=== PATIENT | male | born 1940 | race Caucasian/White ===

== ENCOUNTER 2017-11-16 08:33 | Observation (INO) | payer MEDICARE ==
[2017-11-16 09:06] LABS: ABS Basophils 0.1 10^3/ul (0-0.2); ABS Eosinophils 0.3 10^3/ul (0-0.6); ABS Lymphocytes 1.1 10^3/ul (1.0-4.8); ABS Monocytes 0.5 10^3/ul (0-0.8); ABS Neutrophils 5.1 10^3/ul (1.5-7.7); ABS Nucleated RBC 0 10^3/ul; Eosinophil % 3.7 % (0-6); Hematocrit 39 % (42-52); Hemoglobin 13.3 g/dl (14.0-18.0); Lymphocyte % 15.2 % (25-47); Mean Corpuscular HGB Conc 34 g/dl (31-36); Mean Corpuscular Hemoglobin 31 pg (27-31); Mean Corpuscular Volume 91 fL (80-94); Mean Platelet Volume 7.8 um3 (7.4-10.4); Nucleated Red Blood Cells % 0.1; Platelet Count 176 10^3/ul (150-450); Red Blood Count 4.25 10^6/ul (4.00-5.40); Red Cell Distribution Width 14 % (10.5-15)
--- NOTE | 2017-11-16 09:19 | ED ---
HPI Chest Pain - HPI Summary HPI Summary: This is Marian mendez, documenting for attending, Luke Bowers MD. This patient is a 77 year old M presenting to [facility] with a chief complaint of multiple intermittent episodes of stabbing, non-radiating chest pain located below the sternum lasting a few minutes at a time since last night around 17: 00. Pain is currently resolved, and is 4/10 at its worse. Denies fever, chills, cough abdominal pain, SOB, and bowel or urinary symptoms. PMHx of [place] in 2009, CAD with two stents placed in 2009 and 2010, HTN, and hyperlipidemia. Current symptoms are not similar to previous [place]. Medications and Allergies reviewed. Patient additionally reports a history of inflammatory disease of connective tissue. Denies history of diabetes. - History of Current Complaint Chief Complaint: EDChestPainROMI Time Seen by Provider: 11/16/17 08:41 Hx Obtained From: Patient Onset/Duration: Started Hours Ago, Resolved Timing: Intermittent, Lasting Minutes Initial Severity: Moderate Current Severity: None Pain Intensity: 4 - at worst Pain Scale Used: 0-10 Numeric Chest Pain Location: Discrete at: - below sternum Chest Pain Radiates: No Character: Sharp/Stabbing Aggravating Factor(s): Nothing Alleviating Factor(s): Spontaneous Resolution Associated Signs and Symptoms: Positive: Chest Pain. Negative: Shortness of Breath, Fever, Chills, Cough - Allergy/Home Medications Allergies/Adverse Reactions: Allergies Allergy/AdvReac Type Severity Reaction Status Date / Time atorvastatin Allergy Unknown Verified 11/16/17 09:16 Reaction Details ezetimibe Allergy Unknown Verified 11/16/17 09:16 Reaction Details Penicillins Allergy Unknown Verified 11/16/17 09:16 Reaction Details simvastatin Allergy Unknown Verified 11/16/17 09:16 Reaction Details Home Medications: Home Medications Acetaminophen/Diphenhydramine [Tylenol Pm Ex-Strength Caplet] 1 each PO BEDTIME 11/16/17 [History Confirmed 11/16/17] Carvedilol TAB* [Coreg TAB*] 3.125 mg PO BID 11/16/17 [History Confirmed ] Eplerenone [Inspra] 50 mg PO QAM 11/16/17 [History Confirmed 11/16/17] Rosuvastatin Calcium [Crestor] 5 mg PO QPM 11/16/17 [History Confirmed 11/16/17] Valsartan TAB* [Diovan TAB*] 80 mg PO BID 11/16/17 [History Confirmed 11/16/17] PMH/Surg Hx/FS Hx/Imm Hx Endocrine/Hematology History: Denies: Hx Diabetes Cardiovascular History: Reports: Hx Coronary Artery Disease - stent x2 LAD, Hx Hypercholesterolemia, Hx Hypertension, Hx Myocardial Infarction - Surgical History Surgery Procedure, Year, and Place: two stents place, 2009 and 2010 Infectious Disease History: No Infectious Disease History: Denies: Traveled Outside the [place] in Last 30 Days - Family History Known Family History: Positive: Hypertension - Social History Alcohol Use: None Substance Use Type: Reports: None Smoking Status (MU): Former Smoker Review of Systems Negative: Fever, Chills Negative: Erythema Negative: Sore Throat Positive: Chest Pain Negative: Shortness Of Breath, Cough Negative: Abdominal Pain, Vomiting, Nausea Negative: dysuria, flank pain Negative: Myalgia, Edema Neurological: Negative - dizziness Negative: Headache All Other Systems Reviewed And Are Negative: Yes Physical Exam - Summary Physical Exam Summary: Constitutional: Well-developed, Well-nourished, Alert. (-) Distressed Skin: Warm, Dry HENT: Normocephalic; Atraumatic Eyes: Conjunctiva normal Neck: Musculoskeletal ROM normal neck. (-) JVD, (-) Stridor, (-) Tracheal deviation Cardio: Rhythm regular, rate normal, Heart sounds normal; Intact distal pulses; The pedal pulses are 2+ and symmetric. Radial pulses are 2+ and symmetric. (-) Murmur Pulmonary/Chest wall: Effort normal. (-) Respiratory distress, (-) Wheezes, (-) Rales. Tenderness to midline and slightly to the right, below sternum and ribs Abd: Soft, (-), epigastric tenderness, (-) Distension, (-) Guarding, (-) Rebound Musculoskeletal: (-) Edema Lymph: (-) Cervical adenopathy Neuro: Alert, Oriented x3 Psych: Mood and affect Normal Triage Information Reviewed: Yes Vital Signs On Initial Exam: Initial Vitals Temp Pulse Resp BP Pulse Ox 98.4 F 65 16 159/76 99 11/16/17 08:34 11/16/17 08:34 11/16/17 08:34 11/16/17 08:34 11/16/17 08:34 Vital Signs Reviewed: Yes Diagnostics - Vital Signs Vital Signs Temp Pulse Resp BP Pulse Ox 11/16/17 08:34 98.4 F 65 16 159/76 99 - Laboratory Lab Results: Lab Results 11/16/17 Range/Units 08:50 WBC 7.0 (3.5-10.8) 10^3/ul RBC 4.25 (4.00-5.40) 10^6/ul Hgb 13.3 L (14.0-18.0) g/dl Hct 39 L (42-52) % MCV 91 (80-94) fL MCH 31 (27-31) pg MCHC 34 (31-36) g/dl RDW 14 (10.5-15) % Plt Count 176 (150-450) 10^3/ul MPV 7.8 (7.4-10.4) um3 Neut % (Auto) 72.8 (38-83) % Lymph % (Auto) 15.2 L (25-47) % Glenn % (Auto) 7.3 H (0-7) % Eos % (Auto) 3.7 (0-6) % Baso % (Auto) 1.0 (0-2) % Absolute Neuts (auto) 5.1 (1.5-7.7) 10^3/ul Absolute Lymphs (auto) 1.1 (1.0-4.8) 10^3/ul Absolute Monos (auto) 0.5 (0-0.8) 10^3/ul Absolute Eos (auto) 0.3 (0-0.6) 10^3/ul Absolute Basos (auto) 0.1 (0-0.2) 10^3/ul Absolute Nucleated RBC 0 10^3/ul Nucleated RBC % 0.1 Result Diagrams: 11/16/17 08:50 11/16/17 08:50 Lab Statement: Any lab studies that have been ordered have been reviewed, and results considered in the medical decision making process. - Radiology CXR Radiology Interpretation Completed By: Radiologist - NO ACTIVE CARDIOPULMONARY DISEASE. ED Physician has reviewed this report. - EKG 0851 Cardiac Rate: NL - 64 BPM EKG Rhythm: Sinus Rhythm EKG Interpretation: RBBB, no STEMI - Additional Comments Diagnostic Additional Comments: A Gallbladder US, reveals: FATTY INFILTRATION OF THE LIVER, as per radiologist. Chest Pain Course/Dx - Course Course Of Treatment: 77 year old M presenting to [facility] with a chief complaint of multiple intermittent episodes of stabbing, non-radiating chest pain located below the sternum lasting a few minutes at a time since last night around 17: 00. Pain is currently resolved. Denies fever, chills, cough abdominal pain, SOB , and bowel or urinary symptoms. PMHx of [place] in 2009, CAD with two stents placed in 2009 and 2010, HTN, and hyperlipidemia. Current symptoms are not similar to previous [place]. CXR reveals no acute pathology. EKG reveals RBBB but is otherwise unremarkable. A Gallbladder US reveals fatty liver infiltrates, but is otherwise unremarkable. Bloodwork is remarkable for a lactic acid of 2.1. Three Troponins are negative. Hospitalist is consulted and agrees to admit this patient to have a stress test completed tomorrow. - Diagnoses Provider Diagnoses: Chest pain - Provider Notifications Discussed Care Of Patient With: Elaine Coats - hospitalist Time Discussed With Above Provider: 14:00 Instructed by Provider To: Admit As Inpatient Discharge - Discharge Plan
[2017-11-16 09:26] LABS: EGFR Non-African American 56.5 (>60)
--- NOTE | 2017-11-16 09:38 | RAD ---
HISTORY: CP, chest pain COMPARISONS: July 27, 2009 VIEWS: 1: frontal portable view of the chest at 9:15 AM FINDINGS: LINES AND TUBES: None. CARDIOMEDIASTINAL SILHOUETTE: The cardiomediastinal silhouette is normal for portable technique. PLEURA: The costophrenic angles are sharp. No pleural abnormalities are noted. LUNG PARENCHYMA: The lungs are clear. ABDOMEN: The upper abdomen is clear. There is no subphrenic gas. BONES AND SOFT TISSUES: There is a scoliotic curvature of the spine. Degenerative changes are noted. IMPRESSION: NO ACTIVE CARDIOPULMONARY DISEASE.
--- NOTE | 2017-11-16 11:53 | RAD ---
HISTORY: RUQ/EPIGASTRIC PAIN COMPARISONS: October 24, 2003 TECHNIQUE: Multiple transverse and longitudinal ultrasound images were obtained of the right upper quadrant of the abdomen using grayscale and color Doppler imaging. FINDINGS: LIVER: The liver is diffusely echogenic and coarse in echotexture, with decreased acoustic transmission. There is focal fatty sparing along the gallbladder fossa. The liver measures 18.3 cm in long axis.. There is normal hepatopedal flow of the portal vein on Doppler imaging. BILIARY TREE: There is no intrahepatic or extrahepatic biliary dilatation. The common duct measures 0.3 cm. GALLBLADDER: The gallbladder is well-visualized. There is no cholelithiasis, gallbladder wall thickening, pericholecystic fluid, or sonographic Watkins sign. PANCREAS: The pancreas is obscured by overlying bowel gas. RIGHT KIDNEY: Simple renal cysts, including 2 adjacent simple cysts that are described as a single septated cyst on the technologist notes, are noted measuring up to 3.9 cm in size. There is no hydronephrosis or nephrolithiasis. The right kidney measures 11.1 x 6.5 x 6 cm. AORTA AND IVC: The aorta and IVC are unremarkable. FLUID: There are no pleural effusions. There is no free fluid within the hepatorenal recess. OTHER FINDINGS: None. IMPRESSION: FATTY INFILTRATION OF THE LIVER
[2017-11-16] MEDS ORDERED: oxyCODONE/Acetamin 5/325 MG* TAB PO PRN (15:47)
[2017-11-16] MEDS ORDERED: Al Hydrox/Mg Hydrox/Simet LIQ* 30 ML UDC PO PRN (15:47)
[2017-11-16] MEDS ORDERED: Morphine VIAL* 4 MG/ML VIAL (1 ml vial) IV PRN (15:47)
[2017-11-16] MEDS ORDERED: Albuterol 2.5 MG/3 ML NEB.SOL* (0.083%) INH PRN (15:47)
[2017-11-16] MEDS ORDERED: Ondansetron INJ* 2 MG/ML VIAL IV PRN (15:47)
[2017-11-16] MEDS ORDERED: Acetaminophen TAB* 325 MG PO PRN (15:47)
[2017-11-16] MEDS ORDERED: Magnesium Hydroxide LIQ* 30 ML UDC PO PRN (15:47)
[2017-11-16] MEDS ORDERED: CMCS Rosuvastatin (NF) 5 MG TAB PO SCH (18:00)
[2017-11-16] MEDS: Heparin VIAL(*) 5000 UNITS/ML VIAL (FIVE THOUSAND) SUBCUT SCH (21:19)
[2017-11-16] MEDS: Valsartan TAB* 80 MG PO SCH (21:19)
[2017-11-16] MEDS: Carvedilol TAB* 3.125 MG PO SCH (21:19)
[2017-11-16] MEDS: amLODIPine TAB* 5 MG PO SCH (21:19)
--- NOTE | 2017-11-16 21:31 | HP ---
CC: Dr. Conley * ADMISSION HISTORY AND PHYSICAL: DATE OF ADMISSION: 11/16/17 PATIENT OF: Elaine Coats DO, attending hospitalist * (DICTATED BY GLORIA PRESCOTT) PRIMARY CARE PHYSICIAN: Dr. Conley. PRIMARY ROAD MANAGER: Dr. Claudio. CHIEF COMPLAINT: Chest pain. HISTORY OF PRESENT ILLNESS: Mr. Sheehan is a pleasant 77-year-old gentleman, who presented to the emergency room complaining of multiple intermittent episodes of stabbing substernal chest pain located below the sternum. The patient has a past medical history significant for hypertension, hyperlipidemia, as well as coronary artery disease for which he had a cardiac catheterization and 2 stents placed back in 2009 and 2010. He describes intermittent chest discomfort usually lower substernal and epigastric area that has been going on and off for the past 2 days. He denies any fever, chills, nausea, vomiting, or any other associated symptoms. Given his ongoing symptoms and his multiple risk factors as well as prior history of myocardial infarction, the patient presented to the emergency room for evaluation. He had laboratory workup that revealed flat troponin in 3 different draws 3 hours apart as well as slightly elevated lactic acid. His EKG showed no significant ST changes and his chest pain was virtually gone by the time he presented to the emergency room, but given his multiple risk factors for acute coronary syndrome, we were asked to see the patient for further evaluation and to consider admission to rule out ACS. The patient had his last stress test back in 2012 and he reports that being negative. He had 2 catheterizations done in 2009 and 2010 at [facility] with 1 stent placed in the LAD on both occasions. PAST MEDICAL HISTORY: Significant for hypertension, hyperlipidemia, coronary artery disease, morbid obesity, GERD, and history of prostate cancer. PAST SURGICAL HISTORY: Significant for open prostatectomy in 2007 due to history of prostate cancer. He also had 2 cardiac catheterizations with stent placement in 2009 and 2010. CURRENT MEDICATIONS: His medications at home include: 1. Acetaminophen/diphenhydramine, which is Tylenol PM 1 tablet p.o. q.h.s. 2. Norvasc 5 mg p.o. b.i.d. 3. Aspirin 81 mg chewable once daily. 4. Coreg 3.125 mg p.o. b.i.d. 5. Inspra 50 mg p.o. q.a.m. 6. Pepcid 20 mg p.o. b.i.d. 7. Crestor 5 mg p.o. q.h.s. 8. Diovan 80 mg p.o. b.i.d. ALLERGIES: Multiple, include ATORVASTATIN, PENICILLINS, and SIMVASTATIN. FAMILY HISTORY: Reviewed and noncontributory. SOCIAL HISTORY: The patient is . 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 He lives alone. His brother is the healthcare proxy carrier. He is a nonsmoker. Denies alcohol use or illicit drugs. REVIEW OF SYSTEMS: See HPI. Otherwise, 14 points review of systems were evaluated and were essentially negative. PHYSICAL EXAMINATION GENERAL: He is a pleasant, older male, obese, in no acute distress or discomfort at the time of admission. VITAL SIGNS: Revealed blood pressure of 149/76, pulse of 61, temperature of 98.4, respirations of 14 with O2 sat of 96% on room air. HEENT: Head is normocephalic, atraumatic. Sclerae anicteric. PERRLA. EOMs intact. Oropharynx is pink and moist. NECK: Supple. Trachea midline. No cervical adenopathy, thyromegaly, or JVD. LUNGS: Clear to auscultation bilaterally. HEART: Regular rate and rhythm. Normal S1 and S2 without rubs, murmurs, or gallops. BACK: With normal curvature and no CVA tenderness. ABDOMEN: Soft and nondistended. There is mild epigastric tenderness on palpation without rigidity or rebound tenderness. There is no guarding, hernias , masses, or hepatosplenomegaly. EXTREMITIES: Without cyanosis, clubbing, or edema. NEUROLOGIC: He is awake, alert, and oriented. Gross sensory and motor exam were normal. RECTAL: Exam deferred at this time. LABORATORY WORKUP: CBC with white count of 7000, hemoglobin 13.3 and hematocrit of 39, platelets of 176. Chemistry panel with sodium 137, potassium 4.2, CO2 of 23, BUN of 25, and creatinine of 1.24, which has been his baseline since earlier this year. His glucose is 197, lactic acid 2.1. LFTs within normal limits and troponin 0.0 at 3 separate draws 3 hours apart. ACCESSORY DIAGNOSTIC DATA: EKG with no ST changes noted. Chest x-ray with no acute cardiopulmonary changes and gallbladder ultrasound revealed fatty liver without evidence of cholecystitis. IMPRESSION: A 77-year-old gentleman with past medical history significant for hypertension, hyperlipidemia and coronary artery disease, who presented to the emergency room with 2 days' history of intermittent substernal chest discomfort with multiple risk factors for acute coronary syndrome. ASSESSMENT AND PLAN: 1. Chest pain. The patient will be admitted to telemetry unit for observation overnight. We will obtain another troponin in the morning, repeat his EKG and get an echocardiogram. He has not had a stress test done since 2012 and we will go ahead and order one for tomorrow. I discussed with him the risk factors of coronary artery disease that he is well aware of since he has history of similar situation most recently 5 years ago. We will provide supplemental oxygen, nitroglycerin, morphine as needed for pain and keep him n.p.o. after midnight for potential intervention if needed. 2. Hypertension. We will maintain him on his Diovan and Coreg as well as Norvasc. 3. Hyperlipidemia. We will continue his Crestor as indicated. 4. Coronary artery disease. We will continue the patient on his Diovan as well as baby aspirin. 5. DVT prophylaxis: He scored 4 making him high risk and will be covered with subcu heparin. 6. Code status: He is a full code. 7. Disposition: Admit to tele for observation, stress test in the morning to rule out acute coronary syndrome. TIME SPENT: Approximately 60 minutes spent admitting this patient with greater than 50% on taking history and performing physical exam. I discussed the case with my attending, Dr. Coats, who agreed to plan of care and will follow him up accordingly. GLORIA PRESCOTT [id number]/[facility] #: [id number] SENA
[2017-11-16] MEDS ORDERED: diPHENhydraMINE PO* 25 MG PO PRN (21:44)
[2017-11-16] MEDS ORDERED: Melatonin 3 MG TAB PO PRN (21:44)
[2017-11-17 05:36] LABS: ABS Basophils 0.1 10^3/ul (0-0.2); ABS Eosinophils 0.3 10^3/ul (0-0.6); ABS Lymphocytes 1.5 10^3/ul (1.0-4.8); ABS Monocytes 0.6 10^3/ul (0-0.8); ABS Neutrophils 5.9 10^3/ul (1.5-7.7); ABS Nucleated RBC 0 10^3/ul; Eosinophil % 3.2 % (0-6); Hematocrit 41 % (42-52); Hemoglobin 13.9 g/dl (14.0-18.0); Lymphocyte % 17.9 % (25-47); Mean Corpuscular HGB Conc 34 g/dl (31-36); Mean Corpuscular Hemoglobin 31 pg (27-31); Mean Corpuscular Volume 91 fL (80-94); Mean Platelet Volume 7.5 um3 (7.4-10.4); Nucleated Red Blood Cells % 0; Platelet Count 173 10^3/ul (150-450); Red Blood Count 4.48 10^6/ul (4.00-5.40); Red Cell Distribution Width 14 % (10.5-15); White Blood Count 8.4 10^3/ul (3.5-10.8)
[2017-11-17 05:55] LABS: EGFR Non-African American 57.6 (>60)
[2017-11-17] MEDS: Heparin VIAL(*) 5000 UNITS/ML VIAL (FIVE THOUSAND) SUBCUT SCH ×2 (05:55→13:29)
[2017-11-17] MEDS ORDERED: Regadenoson* 0.4 MG/5 ML SYRINGE ONE (07:39)
[2017-11-17] MEDS ORDERED: Aminophylline IV* 25 MG/ML 10 ML VIAL ONE (07:40)
[2017-11-17] MEDS ORDERED: Acetaminophen TAB* 325 MG PO SCH (08:06)
[2017-11-17] MEDS ORDERED: CMCS - Epleronone (NF) 25 MG TAB PO SCH (09:00)
[2017-11-17] MEDS ORDERED: EPLERENONE 50 MG PO SCH (09:00)
[2017-11-17] MEDS ORDERED: Aspirin 81 mg CHEW TAB* 81 MG TAB.CHEW PO SCH (09:00)
[2017-11-17] MEDS ORDERED: Famotidine TAB* 20 MG PO SCH (09:00)
--- NOTE | 2017-11-17 12:21 | RAD ---
HISTORY: Chest pain, CAD, hypertension, hyperlipidemia, COMPARISONS: October 13, 2011 TECHNIQUE: A 1 day stress/rest myocardial perfusion study was performed, with pharmacologic stress. The stress portion was monitored by Dr. Claudio. Gated SPECT imaging was performed, with CT-based attenuation correction DOSE: Stress: Technetium 99m tetrofosmin, 26.37 millicuries, injected at 11:07 AM on November 17, 2017 Rest: Technetium 99m tetrofosmin, 10.3 millicuries, injected at 8:20 AM on November 17, 2017 Pharmacologic agent: Lexiscan FINDINGS: CARDIAC MONITORING: Nonspecific ST changes with stress EF: 73% TID: 1.26 MOTION: Normal motion, with normal wall thickening. PERFUSION: There are no fixed or reversible perfusion defects. A small defect on the attenuation corrected images is felt to be artifactual. OTHER: None IMPRESSION: NO DEFINITE FIXED OR REVERSIBLE PERFUSION DEFECTS ASSESSMENT: LOW RISK. Based on imaging criteria from ACC/AHA 2002. Guideline Update for the Management of Patient's with Chronic Stable Angina, table 23. Noninvasive Risk Stratification.
[2017-11-17 12:27] VITALS: BP 114/59
[2017-11-17] MEDS: Valsartan TAB* 80 MG PO SCH (12:38)
[2017-11-17] MEDS: Carvedilol TAB* 3.125 MG PO SCH (12:42)
[2017-11-17] MEDS: amLODIPine TAB* 5 MG PO SCH (12:43)
--- NOTE | 2017-11-17 12:43 | ECHO ---
Patient: CORTEZ STEARNS [facility] Rec#: [id number] : 1940 Date: 11/17/2017 Age: 77y Height: 168 cm / 66.1 in Weight: 75.5 kg / 166.4 lbs Sex: M BSA: 1.85 Room#: 432 Admit Date#: 11/16/2017 Type: Inpatient Referring: Lu Langston Reading: Francesco Claudio MD Stuffed Casing Tier: Opal Siddiqui RN RDCS CC: Justin Conley MD Transthoracic Echocardiogram Indication: Chest pain BP: 126/57 HR: 57 Rhythm: Bradycardia Findings History: CAD with SC and PCI, HTN, HLD, obesity, former smoker Technical Comments: The study quality is fair. The study is technically limited due to patient body habitus. The study is technically limited due to the patient's smoking history. Completed at 0915. Left Ventricle: The left ventricular chamber size is normal. Mild to moderate concentric left ventricular hypertrophy is observed. There is a prominent septal knuckle. Global left ventricular wall motion and contractility are within normal limits. There is normal left ventricular systolic function. The estimated ejection fraction is 60-65%. Abnormal left ventricular diastolic filling is observed, consistent with impaired relaxation. Left Atrium: The left atrium is moderately dilated. Right Ventricle: The right ventricular cavity size is normal. The right ventricular global systolic function is low normal. Right Atrium: The right atrial cavity size is normal. Aortic Valve: The aortic valve is trileaflet. The aortic valve leaflets are mildly thickened. There is trace to mild aortic regurgitation. There is no evidence of aortic stenosis. Mitral Valve: The mitral valve leaflets are mildly thickened. There is a trace of mitral regurgitation. There is no evidence of mitral stenosis. Tricuspid Valve: The tricuspid valve leaflets are normal. There is trace to mild tricuspid regurgitation. There is evidence of borderline pulmonary hypertension. There is no tricuspid stenosis. Pulmonic Valve: The pulmonic valve appears normal. There is mild to moderate pulmonic regurgitation. There is no pulmonic stenosis. Pericardium: There is no significant pericardial effusion. A pericardial fat pad is visualized. Aorta: There is no dilatation of the ascending aorta. There is no dilatation of the aortic arch. There is no dilation of the aortic root. Pulmonary Artery: The main pulmonary artery appears normal. Venous: The venous system is not well visualized. The inferior vena cava is not visualized. Conclusions Mild to moderate concentric left ventricular hypertrophy is observed. The estimated ejection fraction is 60-65%. Abnormal left ventricular diastolic filling is observed, consistent with impaired relaxation. The left atrium is moderately dilated. The right ventricular global systolic function is low normal. The aortic valve leaflets are mildly thickened. There is trace to mild aortic regurgitation. There is a trace of mitral regurgitation. There is trace to mild tricuspid regurgitation. Similar to 12/2016. Measurements Name Value Normal Range RVIDd (AP) 2D 2.8 cm (0.9 - 2.6) RVDdMajor (2D) 3.2 cm (2.2 - 4.4) RAd ISD 4CH 4.9 cm (3.4 - 4.9) RA (A4C)W 2.9 cm (2.9 - 4.6) IVSd (2D) 1.3 cm (0.6 - 1) LVPWd (2D) 1.3 cm (0.6 - 1) LVIDd (2D) 4.1 cm (3.6 - 5.4) LVIDs (2D) 2.6 cm - LV FS (2D) 37 % (25 - 45) Aortic Annulus 1.8 cm (1.4 - 2.6) Ao root diameter (2D) 2.9 cm (2.1 - 3.5) Ascending Ao 3.2 cm (2.1 - 3.4) Aortic arch 2.9 cm (1.8 - 3.4) LA dimension (AP) 2D 3.8 cm (2.3 - 3.8) LAd ISD 4CH 4.9 cm (2.9 - 5.3) LA ISD 4CH W 3.4 cm (2.5 - 4.5) Name Value Normal Range LA ESV BP (A/L) index 42.6 ml/m2 - Name Value Normal Range MV E-wave Vmax 0.67 m/sec - MV deceleration time 187 msec - MV A-wave Vmax 0.89 m/sec - MV E:A ratio 0.8 ratio - LV septal e' Vmax 0.06 m/sec - LV lateral e' Vmax 0.1 m/sec - LV E:e' septal ratio 11.2 ratio - LV E:e' lateral ratio 6.7 ratio - Name Value Normal Range AV Vmax 1.4 m/sec - AV VTI 30.8 cm - AV peak gradient 8 mmHg - AV mean gradient 5 mmHg - LVOT Vmax 0.92 m/sec - LVOT VTI 19.3 cm - LVOT peak gradient 3 mmHg - LVOT mean gradient 2 mmHg - ABDULKADIR Vmax 0.62 m/sec - Name Value Normal Range TR Vmax 2.6 m/sec - TR peak gradient 27 mmHg - RAP 8 mmHg - RVSP 35 mmHg - Name Value Normal Range PV Vmax 0.9 m/sec -
--- NOTE | 2017-11-19 08:15 | DS ---
CC: Dr. Conley * DISCHARGE SUMMARY: DATE OF ADMISSION: 11/16/17 DATE OF DISCHARGE: 11/17/17 PROVIDER: Dajuan Soni NP ATTENDING PHYSICIAN: Dr. Rafael Stevens * (dictated by Dajuan Soni NP ). PRIMARY CARE PROVIDER: Dr. Conley. PRIMARY DIAGNOSIS: Chest pain. SECONDARY DIAGNOSES: 1. Hypertension. 2. Hyperlipidemia. 3. Coronary artery disease. 4. Morbid obesity. 5. Gastroesophageal reflux disease. 6. History of prostate cancer. STUDIES COMPLETED WHILE IN THE HOSPITAL: The patient had a chest x-ray on 11/16. Radiologist's impression: No active cardiopulmonary disease. He had an electrocardiogram done on 11/16/17, which showed sinus rhythm at a rate of 64. He had an ultrasound of the gallbladder on 11/16/17. Radiologist's impression: Fatty infiltration of the liver. The gallbladder was well visualized. There was no cholelithiasis, gallbladder wall thickening, pericholecystic fluid or sonographic Watkins sign. He had a transthoracic echo on 11/16/17, conclusion: There is gewb-hv-[id number] concentric left ventricular hypertrophy, estimated ejection fraction 60% to 65% , abnormal left ventricular diastolic filling is observed consistent with impaired relaxation. The left atrium is mildly dilated. The right ventricular global systolic function is low normal. The aortic valve leaflets are mildly thickened. There is hkwjx-gb-cenb aortic regurgitation. There is trace of mitral regurgitation and there is vvsjj-da-[id number] tricuspid regurgitation similar to when compared to December 2016. He had a nuclear stress test which was read as no definite fixed or reversible perfusion deficits, low risk. DISCHARGE MEDICATIONS: No new home medications. Continued home medications: 1. Valsartan 80 mg p.o. b.i.d. 2. Coreg 3.125 mg p.o. b.i.d. 3. Aspirin 81 mg p.o. q.a.m. 4. Amlodipine 5 mg p.o. b.i.d. 5. Pepcid 20 mg p.o. b.i.d. 6. Crestor 5 mg p.o. q.p.m. 7. Inspra 50 mg p.o. q.a.m. 8. Tylenol PM 1 p.o. at bedtime. HISTORY OF PRESENT ILLNESS AND HOSPITAL COURSE: Mr. Sheehan is a pleasant 77-year - old gentleman who presented to the emergency room complaining of multiple episodes of intermittent stabbing substernal chest pain below the sternum. The patient has a significant history for hypertension, hyperlipidemia, and coronary artery disease, for which he had a catheterization and 2 stents placed back in 2009 and 2010. He describes the intermittent chest discomfort usually lower substernal epigastric area that has been going on and off for the past 2 days. He denies any fever, chills, nausea, vomiting. He denies any associated symptoms. Given his ongoing symptoms and multiple risk factors as well as his history of myocardial infarction, the patient presented to the emergency room for further evaluation. While in the emergency room, he had routine lab work drawn. His troponins were flat. He had them repeated 3 hours apart, which were all 0.00 x3 and 0.01 x1. Given his multiple risk factors for acute coronary syndrome, we were asked to see and evaluate him for consideration for admission for rule out acute coronary syndrome. The patient had his last stress test in 2012 and reports are being negative. He had 2 cardiac catheterizations done in 2009 and 2010 at [facility], 1 stent placed in the LAD on both occasions. Given this history, we admitted him for further observation and to rule out acute coronary syndrome. While in the hospital, the patient was monitored on telemetry. He did not have any arrhythmias noted on the telemetry. His troponins remained negative at 0.00 x3 and 0.01 x1. He denied any fever, chills, nausea, vomiting or diarrhea. Denied any chest pain or shortness of breath, any further episodes of chest pain or shortness of breath. On the day of discharge, he had a nuclear stress test that showed low risk with no reversible or fixed defects noted. Given his negative stress test, he is stable for discharge home. Mr. Sheehan will be discharged home today. Vital signs are as follows: Blood pressure 114/59, heart rate is 60, O2 saturation 98%, respirations 16, temperature was 98.2. DISCHARGE PLAN: Mr. Sheehan will be discharged back home. Activity as tolerated. 1. Chest pain. I suspect that this chest pain is noncardiac. I suspect this could be related to acid reflux or a pulled muscle as he does report that he was doing some scrubbing of the floors. He did have a nuclear stress test that was low risk. There was no fixed or reversible defects. He did have an ultrasound of the gallbladder that was also negative for cholelithiasis or gallbladder wall thickening. His troponins remained negative throughout his hospitalization. 2. Coronary artery disease. He should continue on his home medications of aspirin 81 mg p.o. daily. 3. Hypertension. He should continue on Norvasc 5 mg p.o. b.i.d. and Coreg 3.125 mg p.o. b.i.d. FOLLOWUP: The patient should follow up with his primary care provider for any further chest pain. The patient was instructed to return to the emergency room if he has increased chest pain, shortness of breath, diaphoresis with nausea and vomiting or any other concerning symptoms. This is a summarization of his hospitalization. For further details, please see the entire medical record. TIME SPENT: Time spent on this discharge was approximately 60 minutes, greater than half that time was spent with the patient discussing discharge plans and instructions. CONDITION AT DISCHARGE: Stable. DAJUAN SONI NP [id number]/[facility] #: [id number] SENA
== END 2017-11-17 15:10 | disposition home or self-care (01) ==
LOC: ED 08:33 → MEDTELE 15:47
PROVIDERS: ADMIT Hospitalist; ATTEND Internal Medicine
DX: R07.9 Chest pain, unspecified (principal); I10 Essential (primary) hypertension; E78.5 Hyperlipidemia, unspecified; I25.10 Atherosclerotic heart disease of native coronary artery without angina pectoris; E66.01 Morbid (severe) obesity due to excess calories; Z87.891 Personal history of nicotine dependence; Z95.1 Presence of aortocoronary bypass graft; E78.00 Pure hypercholesterolemia, unspecified; K76.0 Fatty (change of) liver, not elsewhere classified; I35.1 Nonrheumatic aortic (valve) insufficiency; Z85.46 Personal history of malignant neoplasm of prostate; Z79.899 Other long term (current) drug therapy; Z79.82 Long term (current) use of aspirin
CPT/HCPCS: 36415; 71045; 76705; 78452; 80048; 80053; 83605; 84484; 85025; 93005; 93017; 93306; 96374; 96375; 99284; A9270-GY; A9502; G0378; J0280; J1644; J2405; J2785

== ENCOUNTER → 2018-01-19 12:31 | Emergency (ER) | payer MEDICARE ==
--- OUTSIDE RECORDS SUMMARY | 2018-01-19 13:17 | XMS REPORT ---
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 Justin Conley MD Primary Care Physician Unavailable Payers Type Date Identification Numbers Payment Provider Subscriber Medicare Primary Effective: Policy Number: [place] 2005 [id number] PayID: [id number] [address] [place] [address] Medigap Part B Policy Number: [id number] [facility] [place] PayID: [id number] [address] [place] [address] Medigap Part B Effective: 2005 Policy Number: [place] [id number] Expires: 2018 PayID: [id number] [address] [place] [address] Problems Date Description Provider Status Onset: 08/23/2011 Gastroesophageal reflux disease Justin Conley M.D. Active Onset: 02/08/2014 Arthropathy Justin Conley M.D. Active Family History Date Family Member(s) Problem(s) Comments Father leukemia Mother due to Old age at 91 () Paternal Grandfather due to [place] () Paternal Grandmother due to heart disease () - age 82 Social History Type Date Description Comments Marital Status Patient is Living Situation Patient lives alone Diet Diet is healthy and well balanced Sleep Reports normal sleep activity Cigarette Use Nonsmoker quit in 1969 ETOH Use Denies alcohol use Daily Caffeine Does not consume caffeine Exercise Type/Frequency Current Exercises regularly - stationary bike Allergies, Adverse Reactions, Alerts Date Description Reaction Status Severity Comments Penicillin active Medications Medication Date Status Form Strength Qnty SIG Indications Ordering Provider Fluticasone 01/04 Active Suspension 50mcg/Act 16gm instill 2 R42 Hope Propionate sprays into Yogi, each [facility] nostril once daily Crestor Active Tablets 5mg 30tab 1 po qd Unknown /0000 s Amlodipine Active Tablets 5mg 1 po bid Unknown Besylate Aspirin Active Tablets 81mg 1 po qd Unknown Famotidine Active Tablets 20mg 60tab take 1 Unknown s tablet by mouth twice a day Carvedilol Active Tablets 3.125mg take 1 Unknown tablet by mouth twice a day Eplerenone Active Tablets 50mg 1 PO qd Unknown Irbesartan Active Tablets 150mg 1 by mouth Unknown every day Excedrin PM Active Tablets 500-38mg 1 PO qpm Unknown Nystatin 02/06 Hx 45uni use daily Justin Padilla Triamcinolone /2011 Liyah Miranda M.D. 01/02 ECHO Pred 02/06 Hx 1/8% 1unit Use 1 GTT Justin Padilla s Q.D Liyah Conley M.D. 01/02 Jury Duty 08/22 Hx unable to Justin Padilla /2011 be Liyah Arnold due to Clint 01/02 cardiac /2018 problems Anusol-HC 09/30 Hx Cream Sup 12uni apply bid Justin Padilla /2010 Liyah Miranda M.D. 01/02 Physical 09/15 Hx treatment Justin Padilla Therapy and Liyah Conley evaluation Clint 01/02 of neck /2018 pain Benadryl 07/30 Hx Capsules 25mg 1 po q hs Justin Padilla /2009 prn Liyah Conley M.D. 09/15 Tricor 03/16 Hx Tablets 145mg 90tab take 1 Justin Padilla /2008 s tablet by Jarvis - mouth once M.DSevero 07/30 a day Atenolol 03/10 Hx Tablets 50mg 90tab 1 po qd Justin Padilla /2008 s Liyah Conley M.D. 07/30 Atenolol 03/10 Hx Tablets 25mg 90tab 1 po qd Justin Padilla Liyah Garcia M.D. 01/04 Ramipril 03/10 Hx Capsules 10mg 180ca 2 po qd Justin Padilla Liyah Burton M.D. 01/02 Doxycycline 08/15 Hx Capsules 50mg 14cap 1 po bid Edward F. Monohydrate /2007 Liyah Esposito M.D. 03/11 Pepto-Bismol 08/11 Hx Suspension 524mg/30M L [facility] 07/30 [facility] [place] Chlor-Trimeton 08/11 Hx Tablets 4mg [facility] 03/11 [place] Zithromax 08/11 Hx Tablets 250mg 6Tabs 2 po qd Edward F. /2007 today Surya - then 1 po MGene 08/15 qd times [place]-3 07/04 Hx Capsules 1000mg PO qd [facility] 08/11 [place] Amlodipine 07/04 Hx Tablets 5mg 90tab 1 po qd Justin Padilla Besylate Liyah Garcia M.D. 09/30 Altace 02/21 Hx Capsules 20mg 1 po qd [facility] 03/10 [place] Atenolol 02/21 Hx Capsules 25mg 1 po QHS [facility] 03/10 [place] Lipitor 02/21 Hx 0 10mg 1 po q [facility] 02/21 [facility] [place] Tyenol PM 02/21 Hx Tablets 500mg 2 PO QHS [facility] 07/30 [place] Jury Duty 02/21 Hx PT is Justin Padilla /2005 unable to Liyah Conley A Vanesa Jaramillo 08/11 Due To Permanent Medical Disability Bextra 11/10 Hx 20mg 30uni 1 qd prn Justin Padilla /2003 Liyah Miranda M.D. 04/07 Claritin 11/10 Hx 10mg 30uni 1 qd Justin Padilla /2003 Liyah Miranda M.D. 03/11 Physical 02/23 Hx Treatment Justin Padilla And Liyah Conley M.D. 04/15 For Back /2003 Pain 4-6 Weeks Viagra 06/09 Hx 50mg 5unit 1 PO 1 HR Justin Padilla /2000 s Prior To Liyah Conley Sexual Clint 03/11 Bactroban 06/09 Hx 15gm Apply tid Edward FSevero /2000 Liyah London M.D. 04/15 Altace 03/07 Hx 10mg 90uni 1 po qd [facility] 02/21 [facility] Atenolol 03/07 Hx 50mg 1 po qd Justin JSevero /1999 Liyah Conley M.D. 03/11 Nizoral Cream 03/07 Hx 30GMS Apply qd Edward FSevero Liyah London M.D. 02/21 Pepcid 03/07 Hx 20mg 60uni 1 PO bid Edward Mcdonald Liyah Price M.D. 04/15 Vioxx 07/23 Hx 25mg 30uni 1 PO qd Justin Padilla /1999 Liyah Miranda M.D. 03/07 Celebrex 05/13 Hx Tabs 200mg 30tab 1 PO Justin Padilla /1999 s Liyah Mcclellan M.D. 03/07 Claritin 01/28 Hx 10mg 7unit 1 qd Justin Padilla /1998 s Liyah Conley M.D. 04/15 Mycostatin 10/02 Hx Powder 1Bott Apply To Justin Padilla /1997 le Area bid To Liyah Conley M.D. 04/15 Prilosec 05/16 Hx 20mg 30uni 1 po qd Justin Padilla /1997 Liyah Miranda M.D. 07/30 Pepcid 05/16 Hx 20mg 60uni 1 PO bid Justin Padilla /1997 Liyah Miranda M.D. 03/18 Atenolol Hx Tablets 25mg 2 po q am Unknown /0000 1 po q pm - 03/11 Plavix Hx Tablets 75mg 1 po q am Unknown /0000 - 01/02 Aspirin Hx Tablets 325mg 1 po qd Unknown /0000 - 09/30 Zantac Hx Capsules 150mg 1 po q am, Unknown /0000 1 q pm - 08/22 Simvastatin 00 Hx Tablets 20mg take 1 Unknown /0000 tablet at - bedtime 09/15 Tylenol PM 00 Hx Tablets 500-25mg 30tab 1 tab po Unknown Extra Strength /0000 s qhs prn - 01/02 Immunizations CPT Code Status Date Vaccine Lot # [id number] Given 03/01/2016 High-Dose, Influenza Virus Vacccine-fluzone 65 and older 00992 Given 02/21/2015 High-Dose, Influenza Virus Vacccine-fluzone 65 and older [id number] Given 01/29/2014 High-Dose, Influenza Virus Vacccine-fluzone 65 and older 09764 Given 03/07/2013 High-Dose, Influenza Virus Vacccine-fluzone 65 and older [id number] Given 02/02/2012 DO Not Use Split Influenza Virus Vaccine 23360 Given 04/07/2005 Td Immunization, For Use In Individuals 7 Years Or Older Vital Signs Date Vital Result Comment 01/04/2018 BP Systolic 128 mmHg BP Diastolic 60 mmHg Heart Rate 68 /min Body Temperature 98.2 F Respiratory Rate 16 /min Height 55 inches 4'7" Weight 166.00 lb BMI (Body Mass Index) 38.6 kg/m2 02/08/2014 BP Systolic 122 mmHg BP Diastolic 64 mmHg Heart Rate 66 /min Body Temperature 98.3 F Respiratory Rate 18 /min Height 67 inches 5'7" Weight 162.00 lb BMI (Body Mass Index) 25.4 kg/m2 08/23/2011 BP Systolic 122 mmHg BP Diastolic 68 mmHg Heart Rate 60 /min Body Temperature 98.3 F Height 67 inches 5'7" Weight 156.00 lb BMI (Body Mass Index) 24.4 kg/m2 09/30/2010 BP Systolic 140 mmHg BP Diastolic 64 mmHg Heart Rate 68 /min Body Temperature 99.2 F Respiratory Rate 16 /min Height 67 inches 5'7" Weight 158.00 lb BMI (Body Mass Index) 24.7 kg/m2 09/15/2010 BP Systolic 132 mmHg BP Diastolic 72 mmHg Heart Rate 60 /min Body Temperature 98.1 F Height 67 inches 5'7" Weight 159.00 lb BMI (Body Mass Index) 24.9 kg/m2 07/30/2009 BP Systolic 140 mmHg BP Diastolic 64 mmHg Heart Rate 76 /min Body Temperature 99.4 F Height 67 inches 5'7" Weight 160.00 lb BMI (Body Mass Index) 25.1 kg/m2 03/10/2009 BP Systolic 140 mmHg BP Diastolic 80 mmHg Heart Rate 60 /min Weight 163.00 lb 03/11/2008 BP Systolic 160 mmHg BP Diastolic 70 mmHg Heart Rate 60 /min Height 67 inches 5'7" Weight 154.00 lb BMI (Body Mass Index) 24.1 kg/m2 08/12/2007 BP Systolic 156 mmHg BP Diastolic 80 mmHg Heart Rate 52 /min Body Temperature 99.3 F Height 67 inches 5'7" Weight 158.00 lb BMI (Body Mass Index) 24.7 kg/m2 07/05/2007 BP Systolic 160 mmHg BP Diastolic 72 mmHg Heart Rate 56 /min Body Temperature 97.8 F Respiratory Rate 16 /min Height 67 inches 5'7" Weight 163.00 lb BMI (Body Mass Index) 25.5 kg/m2 02/21/2006 BP Systolic 152 mmHg BP Diastolic 78 mmHg Heart Rate 68 /min Height 67 inches 5'7" Weight 155.00 lb BMI (Body Mass Index) 24.3 kg/m2 04/07/2005 BP Systolic 140 mmHg BP Diastolic 72 mmHg Heart Rate 68 /min Height 67 inches 5'7" Weight 154.00 lb BMI (Body Mass Index) 24.1 kg/m2 11/11/2003 BP Systolic 130 mmHg BP Diastolic 88 mmHg Heart Rate 60 /min Height 67 inches 5'7" Weight 156.00 lb BMI (Body Mass Index) 24.4 kg/m2 04/15/2003 BP Systolic 140 mmHg BP Diastolic 72 mmHg Heart Rate 68 /min Height 67 inches 5'7" Weight 156.00 lb BMI (Body Mass Index) 24.4 kg/m2 08/13/2002 BP Systolic 160 mmHg BP Diastolic 84 mmHg Heart Rate 56 /min Body Temperature 98.3 F Height 67 inches 5'7" Weight 161.00 lb BMI (Body Mass Index) 25.2 kg/m2 01/05/2002 BP Systolic 150 mmHg BP Diastolic 80 mmHg Heart Rate 60 /min Body Temperature 98.2 F Height 67 inches 5'7" Weight 154.00 lb BMI (Body Mass Index) 24.1 kg/m2 06/16/2001 BP Systolic 144 mmHg BP Diastolic 88 mmHg Heart Rate 60 /min Height 67 inches 5'7" Weight 158.00 lb BMI (Body Mass Index) 24.7 kg/m2 06/09/2000 BP Systolic 152 mmHg BP Diastolic 90 mmHg Heart Rate 56 /min Height 67 inches 5'7" Weight 160.00 lb BMI (Body Mass Index) 25.1 kg/m2 03/07/2000 BP Systolic 160 mmHg LA, SM Cuff BP Diastolic 84 mmHg LA, SM Cuff Heart Rate 60 /min Reg Height 67 inches 5'7" Weight 153.00 lb BMI (Body Mass Index) 24.0 kg/m2 01/28/1999 BP Systolic 150 mmHg BP Diastolic 84 mmHg Height 67 inches 5'7" Weight 152.00 lb 11/18/1998 Body Temperature 98.4 F Weight 154.00 lb 03/18/1998 BP Systolic 166 mmHg BP Diastolic 94 mmHg Weight 155.00 lb 10/02/1997 BP Systolic 140 mmHg BP Diastolic 92 mmHg Body Temperature 98.7 F Weight 150.00 lb 05/24/1997 BP Systolic 150 mmHg BP Diastolic 90 mmHg Height 66.50 inches 5'6.50" Weight 149.50 lb 149 lbs. 8 ozs. Results Test Date Test Result H/L Range Note CBC Electronic (Fma New) 01/04/2018 WBC 7.82 4.0-10.0 RBC 4.46 3.93-6.0 Hemoglobin (Fma/CMC/CTX) 13.9 g/dL 12.0-17.0 Hematocrit (Fma/CMC/CTX) 41.5 % 35.0-50.0 Mean Corpuscular Vol 93 fL 80-95 Mean Corpuscular Hemoglobin 31.2 pg 25.6-32.2 Mean Corpuscular Hemo Concen 33.5 g/dL 32.2-36.0 Platelets 223 10^3/ul 163-400 RDW-CV 13.1 11.6-14.4 Mean Platelet Volume 9.6 fL 8.0-12.4 Absolute Neutrophils BLD 5.75 1.56-6.13 Absolute Lymphocytes 1.14 Low 1.18-3.74 Absolute Monocytes BLD Auto 0.63 0.24-0.82 Absolute Eos Blood 0.24 0.04-0.54 Absolute Basophils 0.04 0.01-0.08 Neutrophil % 73.4 % High 34.0-70.0 Lymph% 14.6 % Low 20.0-52.0 Monocytes % 8.1 % 5.0-12.0 Eos % 3.1 % 0.7-7.0 Basophil% .05 % 0-1.2 Laboratory test finding 01/04/2018 TSH <pending> 0.5-5.0 Free T3 <pending> 2.0-4.9 Laboratory test finding 01/04/2018 Free T4 <pending> 0.75-1.54 CBC Auto Diff 11/01/2016 White Blood Count 6.4 10^3/uL 3.5-10.8 Red Blood Count 4.40 10^6/uL 4.0-5.4 Hemoglobin 13.9 g/dL Low 14.0-18.0 Hematocrit 41 % Low 42-52 Mean Corpuscular Volume 93 fL 80-94 Mean Corpuscular Hemoglobin 32 pg High 27-31 Mean Corpuscular HGB Conc 34 g/dL 31-36 Red Cell Distribution Width 14 % 10.5-15 Platelet Count 167 10^3/uL 150-450 Mean Platelet Volume 8 um3 7.4-10.4 Abs Neutrophils 3.7 10^3/uL 1.5-7.7 Abs Lymphocytes 1.7 10^3/uL 1.0-4.8 Abs Monocytes 0.6 10^3/uL 0-0.8 Abs Eosinophils 0.4 10^3/uL 0-0.6 Abs Basophils 0.1 10^3/uL 0-0.2 Abs Nucleated RBC 0.01 10^3/uL Granulocyte % 57.4 % 38-83 Lymphocyte % 27.0 % 25-47 Monocyte % 9.0 % 1-9 Eosinophil % 5.7 % 0-6 Basophil % 0.9 % 0-2 Nucleated Red Blood Cells % 0.2 Comp Metabolic Panel 11/01/2016 Sodium 141 mmol/L 133-145 Potassium 4.2 mmol/L 3.5-5.0 Chloride 108 mmol/L 101-111 Co2 Carbon Dioxide 25 mmol/L 22-32 Anion Gap 8 mmol/L 2-11 Glucose 118 mg/dL High 70-100 Blood Urea Nitrogen 26 mg/dL High 6-24 Creatinine 1.17 mg/dL 0.67-1.17 BUN/Creatinine Ratio 22.2 High 8-20 Calcium 9.2 mg/dL 8.6-10.3 Total Protein 6.5 g/dL 6.4-8.9 Albumin 4.2 g/dL 3.2-5.2 Globulin 2.3 g/dL 2-4 Albumin/Globulin Ratio 1.8 1-3 Total Bilirubin 0.50 mg/dL 0.2-1.0 Alkaline Phosphatase 75 U/L 34-104 Alt 25 U/L 7-52 Ast 16 U/L 13-39 Egfr Non- 60.6 >60 Egfr 77.9 >60 1 Lipid Profile (Trig/Chol/HDL) 11/01/2016 Triglycerides 309 mg/dL 2 Cholesterol 142 mg/dL 3 HDL Cholesterol 33.9 mg/dL 4 LDL Cholesterol 46 mg/dL 5 Laboratory test finding 11/01/2016 Creatine Kinase(CK) 85 U/L 10-223 Laboratory test finding 07/02/2016 PSA Diagnostic 0.029 ng/mL 0-4.0 6 Comp Metabolic Panel 03/30/2016 Sodium 138 mmol/L 133-145 7 Potassium 4.4 mmol/L 3.5-5.0 7 Chloride 104 mmol/L 101-111 7 Co2 Carbon Dioxide 26 mmol/L 22-32 7 Anion Gap 8 mmol/L 2-11 7 Glucose 120 mg/dL High 70-100 7 Blood Urea Nitrogen 24 mg/dL 6-24 7 Creatinine 1.14 mg/dL 0.67-1.17 7 BUN/Creatinine Ratio 21.1 High 8-20 7 Calcium 9.2 mg/dL 8.6-10.3 7 Total Protein 6.6 g/dL 6.4-8.9 7 Albumin 4.2 g/dL 3.2-5.2 7 Globulin 2.4 g/dL 2-4 7 Albumin/Globulin Ratio 1.8 1-3 7 Total Bilirubin 0.50 mg/dL 0.2-1.0 7 Alkaline Phosphatase 70 U/L 34-104 7 Alt 25 U/L 7-52 7 Ast 16 U/L 13-39 7 Egfr Non- 62.6 >60 7 Egfr 80.5 >60 7, 8 Lipid Profile (Trig/Chol/HDL) 03/30/2016 Triglycerides 288 mg/dL 7, 9 Cholesterol 147 mg/dL 7, 10 HDL Cholesterol 31.2 mg/dL 7, 11 LDL Cholesterol 58 mg/dL 7, 12 Laboratory test finding 03/30/2016 Creatine Kinase(CK) 110 U/L 10-223 7 , 13 CBC Auto Diff 05/30/2014 White Blood Count 8.9 10^3/uL 4.8-10.8 Red Blood Count 4.80 10^6/uL 4.0-5.4 Hemoglobin 15.0 g/dL 14.0-18.0 Hematocrit 44 % 42-52 Mean Corpuscular Volume 92 fL 80-94 Mean Corpuscular Hemoglobin 31 pg 27-31 Mean Corpuscular HGB Conc 34 g/dL 31-36 Red Cell Distribution Width 13 % 10.5-15 Platelet Count 194 10^3/uL 150-450 Mean Platelet Volume 8 um3 7.4-10.4 Abs Neutrophils 6.4 10^3/uL 1.5-7.7 Abs Lymphocytes 1.5 10^3/uL 1.0-4.8 Abs Monocytes 0.6 10^3/uL 0-0.8 Abs Eosinophils 0.2 10^3/uL 0-0.6 Abs Basophils 0 10^3/uL 0-0.2 Abs Nucleated RBC 0.01 10^3/uL Granulocyte % 72.5 % 38-83 Lymphocyte % 17.3 % Low 25-47 Monocyte % 7.1 % 1-9 Eosinophil % 2.5 % 0-6 Basophil % 0.6 % 0-2 Nucleated Red Blood Cells % 0.1 Comp Metabolic Panel 05/30/2014 Sodium 137 mmol/L 133-145 Potassium 4.3 mmol/L 3.5-5.0 Chloride 102 mmol/L 101-111 Co2 Carbon Dioxide 25 mmol/L 22-32 Anion Gap 10 mmol/L 2-11 Glucose 100 mg/dL 70-100 Blood Urea Nitrogen 21 mg/dL 6-24 Creatinine 1.12 mg/dL 0.67-1.17 BUN/Creatinine Ratio 18.8 8-20 Calcium 10.1 mg/dL 8.6-10.3 Total Protein 7.2 g/dL 6.4-8.9 Albumin 4.7 g/dL 3.2-5.2 Globulin 2.5 g/dL 2-4 Albumin/Globulin Ratio 1.9 1-3 Total Bilirubin 0.50 mg/dL 0.2-1.0 Alkaline Phosphatase 69 U/L 34-104 Alt 29 U/L 7-52 Ast 18 U/L 13-39 Egfr Non- 64.3 >60 Egfr 82.7 >60 14 Lipid Profile (Trig/Chol/HDL) 05/30/2014 Triglycerides 548 mg/dL 15 Cholesterol 209 mg/dL 16 HDL Cholesterol 31.8 mg/dL 17 LDL Cholesterol (SEE NOTE) mg/dL 18 Laboratory test finding 05/30/2014 Magnesium 2.0 mg/dL 1.9-2.7 Creatine Kinase 97 U/L 10 Troponin I 0.00 ng/mL <0.03 19 Xray 02/14/2014 Hips Bilateral Min 2 Veiw/Hip W/Ap Pelvis <pending> Ankle 2 Views LT <pending> Laboratory test finding 02/08/2014 Antinuclear Abs, Ifa See patterns 20 , 21 C-Reactive Protein 4.3 mg/L 0.0-5.0 20 Rheumatoid Arth Factor 9.5 IU/mL 0.0-13.9 20 Harika Pattern & Titer 02/08/2014 Homogeneous Pattern 1:160 High 20 Note: SEE NOTE 20, 22 Laboratory test finding 02/08/2014 Uric Acid 7.0 mg/dL 2.5-9.2 Laboratory test finding 02/08/2014 Sed Rate (Fma/CMC/Centrex) 22 mm Comp Metabolic Panel 02/05/2014 Sodium 137 mmol/L 133-145 23 Potassium 4.1 mmol/L 3.7-5.6 23 Chloride 103 mmol/L 101-111 23 Co2 Carbon Dioxide 27 mmol/L 22-32 23 Anion Gap 7 mmol/L 2-11 23 Glucose 103 mg/dL High 70-100 23 Blood Urea Nitrogen 21 mg/dL 6-24 23 Creatinine 1.11 mg/dL 0.67-1.17 23 BUN/Creatinine Ratio 18.9 8-20 23 Calcium 9.4 mg/dL 8.6-10.3 23 Total Protein 7.3 g/dL 6.4-8.9 23 Albumin 4.4 g/dL 3.2-5.2 23 Globulin 2.9 g/dL 2-4 23 Albumin/Globulin Ratio 1.5 1-3 23 Total Bilirubin 0.70 mg/dL 0.2-1.0 23 Alkaline Phosphatase 64 U/L 34-104 23 Alt 25 U/L 7-52 23 Ast 17 U/L 13-39 23 Egfr Non- 64.9 >60 23 Egfr 83.5 >60 23, 24 Lipid Profile (Trig/Chol/HDL) 02/05/2014 Triglycerides 387 mg/dL 23, 25 Cholesterol 163 mg/dL 23, 26 HDL Cholesterol 35.1 mg/dL 23, 27 LDL Cholesterol 51 mg/dL 23, 28 Laboratory test finding 02/05/2014 Creatine Kinase 68 U/L 10-223 23, 29 Comp Metabolic Panel 08/08/2013 Sodium 139 mmol/L 133-145 Potassium 4.1 mmol/L 3.7-5.6 Chloride 104 mmol/L 101-111 Co2 Carbon Dioxide 28 mmol/L 22-32 Anion Gap 7 mmol/L 2-11 Glucose 104 mg/dL High 70-100 Blood Urea Nitrogen 21 mg/dL 6-24 Creatinine 1.06 mg/dL 0.67-1.17 BUN/Creatinine Ratio 19.8 8-20 Calcium 9.3 mg/dL 8.6-10.3 Total Protein 6.8 g/dL 6.4-8.9 Albumin 4.8 g/dL 3.2-5.2 Globulin 2.0 g/dL 2-4 Albumin/Globulin Ratio 2.4 1-3 Total Bilirubin 0.70 mg/dL 0.2-1.0 Alkaline Phosphatase 61 U/L 34-104 Alt 25 U/L 7-52 Ast 18 U/L 13-39 Egfr Non- 68.7 >60 Egfr 88.3 >60 30 Lipid Profile (Trig/Chol/HDL) 08/08/2013 Triglycerides 280 mg/dL 31 Cholesterol 136 mg/dL 32 HDL Cholesterol 34.3 mg/dL 33 LDL Cholesterol 46 mg/dL 34 Laboratory test finding 08/08/2013 Creatine Kinase 89 U/L 10-223 35 Laboratory test finding 06/05/2013 Creatine Kinase 72 U/L 10223 36 CBC Auto Diff 06/05/2013 White Blood Count 6.8 10^3/uL 4.8-10.8 Red Blood Count 4.82 10^6/uL 4.0-5.4 Hemoglobin 14.7 g/dL 14.0-18.0 Hematocrit 44 % 42-52 Mean Corpuscular Volume 91 fL 80-94 Mean Corpuscular Hemoglobin 31 pg 27-31 Mean Corpuscular HGB Conc 34 g/dL 31-36 Red Cell Distribution Width 13 % 10.5-15 Platelet Count 196 10^3/uL 150-450 Mean Platelet Volume 8 um3 7.4-10.4 Abs Neutrophils 4.3 10^3/uL 1.5-7.7 Abs Lymphocytes 1.7 10^3/uL 1.0-4.8 Abs Monocytes 0.6 10^3/uL 0-0.8 Abs Eosinophils 0.2 10^3/uL 0-0.6 Abs Basophils 0 10^3/uL 0-0.2 Abs Nucleated RBC 0 10^3/uL Granulocyte % 62.8 % 38-83 Lymphocyte % 25.0 % 25-47 Monocyte % 8.3 % 1-9 Eosinophil % 3.4 % 0-6 Basophil % 0.5 % 0-2 Nucleated Red Blood Cells % 0 Comp Metabolic Panel 06/05/2013 Sodium 136 mmol/L 133-145 Potassium 4.1 mmol/L 3.7-5.6 Chloride 101 mmol/L 101-111 Co2 Carbon Dioxide 28 mmol/L 22-32 Anion Gap 7 mmol/L 2-11 Glucose 106 mg/dL High 70-100 Blood Urea Nitrogen 17 mg/dL 6-24 Creatinine 1.08 mg/dL 0.67-1.17 BUN/Creatinine Ratio 15.7 8-20 Calcium 9.7 mg/dL 8.6-10.3 Total Protein 6.9 g/dL 6.4-8.9 Albumin 4.7 g/dL 3.2-5.2 Globulin 2.2 g/dL 2-4 Albumin/Globulin Ratio 2.1 1-3 Total Bilirubin 0.60 mg/dL 0.2-1.0 Alkaline Phosphatase 66 U/L 34-104 Alt 27 U/L 7-52 Ast 17 U/L 13-39 Egfr Non- 67.2 >60 Egfr 86.4 >60 37 Lipid Profile (Trig/Chol/HDL) 06/05/2013 Triglycerides 356 mg/dL 38 Cholesterol 164 HDL Cholesterol 38.0 mg/dL 39 Cholesterol/HDL Ratio 4.3 Average 1-4.44 LDL Cholesterol 54.8 Less Than 100 40 Laboratory test finding 05/10/2013 PSA Diagnostic < 0.008 ng/mL 0-4.0 41 Basic Metabolic Panel 10/03/2012 Sodium 142 mmol/L 133-145 Potassium 4.1 mmol/L 3.5-5.0 Chloride 108 mmol/L 101-111 Co2 Carbon Dioxide 29.0 mmol/L 22-32 Anion Gap 5.0 mmol/L 2-11 Glucose 134 mg/dL High 70-100 Blood Urea Nitrogen 17 mg/dL 6-24 Creatinine 1.00 mg/dL 0.50-1.40 BUN/Creatinine Ratio 17.0 8-20 Calcium 9.2 mg/dL 8.1-9.9 Egfr Non- 73.7 >60 Egfr 94.7 >60 42 CBC Auto Diff 08/24/2012 White Blood Count 6.2 10^3/uL 4.8-10.8 Red Blood Count 4.77 10^6/uL 4.0-5.4 Hemoglobin 14.6 g/dL 14.0-18.0 Hematocrit 44 % 42-52 Mean Corpuscular Volume 91 fL 80-94 Mean Corpuscular Hemoglobin 31 pg 27-31 Mean Corpuscular HGB Conc 34 g/dL 31-36 Red Cell Distribution Width 14 % 10.5-15 Platelet Count 169 10^3/uL 150-450 Mean Platelet Volume 9 um3 7.4-10.4 Abs Neutrophils 4.5 10^3/uL 1.5-7.7 Abs Lymphocytes 1.1 10^3/uL 1.0-4.8 Abs Monocytes 0.5 10^3/uL 0-0.8 Abs Eosinophils 0.1 10^3/uL 0-0.6 Abs Basophils 0.1 10^3/uL 0-0.2 Abs Nucleated RBC 0 10^3/uL Granulocyte % 71.7 % 38-83 Lymphocyte % 17.1 % Low 25-47 Monocyte % 8.1 % 1-9 Eosinophil % 2.3 % 0-6 Basophil % 0.8 % 0-2 Nucleated Red Blood Cells % 0 Comp Metabolic Panel 08/24/2012 Sodium 139 mmol/L 133-145 Potassium 4.0 mmol/L 3.5-5.0 Chloride 103 mmol/L 101-111 Co2 Carbon Dioxide 27.0 mmol/L 22-32 Anion Gap 9.0 mmol/L 2-11 Glucose 116 mg/dL High 70-100 Blood Urea Nitrogen 19 mg/dL 6-24 Creatinine 1.10 mg/dL 0.50-1.40 BUN/Creatinine Ratio 17.3 8-20 Calcium 9.3 mg/dL 8.1-9.9 Total Protein 6.0 g/dL Low 6.2-8.1 Albumin 4.1 g/dL 3.2-5.2 Globulin 1.9 g/dL Low 2-4 Albumin/Globulin Ratio 2.2 1-3 Total Bilirubin 0.8 mg/dL 0.4-1.5 Alkaline Phosphatase 68 U/L 30-110 Alt 26 U/L 14-54 Ast 23 U/L 12-42 Egfr Non- 66.0 >60 Egfr 84.9 >60 43 Lipid Profile (Trig/Chol/HDL) 08/24/2012 Triglycerides 353 mg/dL High 40- 200 Cholesterol 174 mg/dL Less than 200 HDL Cholesterol 34 mg/dL Low 40-60 44 Cholesterol/HDL Ratio 5.1 Average High 1-4.44 LDL Cholesterol 69.4 mg/dL Less Than 100 45 Laboratory test finding 08/24/2012 Creatine Kinase 93 U/L 0-200 TSH (Thyroid Stimulating Horm) 2.39 miu/mL 0.34-5.60 Laboratory test finding 05/09/2012 PSA Diagnostic 0.01 ng/mL 0-4.0 46 Comp Metabolic Panel 03/10/2012 Sodium 134 mmol/L 133-145 Potassium 4.0 mmol/L 3.5-5.0 Chloride 103 mmol/L 101-111 Co2 Carbon Dioxide 26.0 mmol/L 22-32 Anion Gap 5.0 mmol/L 2-11 Glucose 100 mg/dL 70-100 Blood Urea Nitrogen 19 mg/dL 6-24 Creatinine 1.00 mg/dL 0.50-1.40 BUN/Creatinine Ratio 19.0 8-20 Calcium 9.2 mg/dL 8.1-9.9 Total Protein 6.9 GM/DL 6.2-8.1 Albumin 4.2 GM/DL 3.2-5.2 Globulin 2.7 GM/DL 2-4 Albumin/Globulin Ratio 1.6 1-3 Total Bilirubin 1.2 mg/dL High 0.1-1.0 47 Alkaline Phosphatase 68 U/L 30-110 Alt 27 U/L 14-54 Ast 20 U/L 12-42 Egfr Non- 73.7 >60 Egfr 94.7 >60 48 Lipid Profile (Trig/Chol/HDL) 03/10/2012 Triglycerides 304 mg/dL High 40- 200 Cholesterol 164 mg/dL Less than 200 HDL Cholesterol 34 mg/dL Low 40-60 49 Cholesterol/HDL Ratio 4.8 AVERAGE High 1-4.44 LDL Cholesterol 69.2 mg/dL Less Than 100 50 Laboratory test finding 03/10/2012 Creatine Kinase 80 U/L 0-200 51 Lipid Profile (Trig/Chol/HDL) 01/04/2012 Triglyceride 385 mg/dL High 40- 200 Cholesterol 164 mg/dL Less Than 200 52 High Density Lipoprotein 34 mg/dL Low 40-60 53 Cholesterol/HDL Ratio 4.82 AVERAGE 1-4.97 Low Density Lipoprotein 53 mg/dL Less Than 100 54 Comp Metabolic Panel 01/04/2012 Sodium 142 mmol/L 135-145 Potassium 4.4 mmol/L 3.5-5.0 Chloride 106 mmol/L 101-111 Co2 (Carbon Dioxide) 29.0 mmol/L 22-32 Anion Gap 7.0 mmol/L 2-11 55 Glucose 107 mg/dL High 70-100 BUN 16 mg/dL 6-24 Creatinine 1.1 mg/dL 0.50-1.40 One Over Creatinine 0.90 BUN/Creatinine Ratio 14.5 8-20 Calcium 9.0 mg/dL 8.1-9.9 Total Protein 6.5 GM/DL 6.2-8.1 Albumin 4.3 GM/DL 3.2-5.2 Globulin 2.2 GM/DL 2-4 Albumin/Globulin Ratio 2.0 1-3 Bilirubin Total 0.9 mg/dL 0.4-1.5 56 Alkaline Phosphatase 71 U/L 39-117 Alt (SGPT) 26 U/L 17-63 Ast (Sgot) 18 U/L 12-42 eGFR Non- 66.0 > 60 eGFR 84.9 > 60 57 Laboratory test finding 01/04/2012 CPK (Creatine Kinase) 90 U/L 0-200 Laboratory test finding 08/12/2011 CPK (Creatine Kinase) 80 U/L 0-200 Lipid Profile 08/12/2011 Triglyceride 265 mg/dL High 40-200 (Trig/Chol/HDL) Cholesterol 119 mg/dL Less Than 200 58 High Density Lipoprotein 31 mg/dL Low 40-60 59 Cholesterol/HDL Ratio 3.84 AVERAGE 1-4.97 Low Density Lipoprotein 35 mg/dL Less Than 100 60 Comp Metabolic Panel 08/12/2011 Sodium 140 mmol/L 135-145 Potassium 4.3 mmol/L 3.5-5.0 Chloride 104 mmol/L 101-111 Co2 (Carbon Dioxide) 27.0 mmol/L 22-32 Anion Gap 9.0 mmol/L 2-11 61 Glucose 100 mg/dL 70-100 BUN 21 mg/dL 6-24 Creatinine 1.2 mg/dL 0.50-1.40 One Over Creatinine 0.83 BUN/Creatinine Ratio 17.5 8-20 Calcium 9.1 mg/dL 8.1-9.9 Total Protein 6.4 GM/DL 6.2-8.1 Albumin 4.3 GM/DL 3.2-5.2 Globulin 2.1 GM/DL 2-4 Albumin/Globulin Ratio 2.0 1-3 Bilirubin Total 0.9 mg/dL 0.4-1.5 62 Alkaline Phosphatase 61 U/L 39-117 Alt (SGPT) 30 U/L 17-63 Ast (Sgot) 23 U/L 12-42 eGFR Non- 59.9 > 60 eGFR 77.0 > 60 63 Laboratory test finding 05/14/2011 PSA,Diagnostic 0.00 NG/ML 0-4 64 Lipid Profile (Trig/Chol/HDL) 01/26/2011 Triglyceride 350 mg/dL High 40- 200 Cholesterol 143 mg/dL Less Than 200 65 High Density Lipoprotein 34 mg/dL Low 40-60 66 Cholesterol/HDL Ratio 4.21 AVERAGE 1-4.97 Low Density Lipoprotein 39 mg/dL Less Than 100 67 Laboratory test finding 01/26/2011 CPK (Creatine Kinase) 64 U/L 0-200 Comp Metabolic Panel 01/26/2011 Sodium 138 mmol/L 135-145 Potassium 4.5 mmol/L 3.5-5.0 Chloride 103 mmol/L 101-111 Co2 (Carbon Dioxide) 26.0 mmol/L 22-32 Anion Gap 9.0 mmol/L 2-11 68 Glucose 104 mg/dL High 70-100 BUN 21 mg/dL 6-24 Creatinine 1.1 mg/dL 0.50-1.40 One Over Creatinine 0.90 BUN/Creatinine Ratio 19.1 8-20 Calcium 9.6 mg/dL 8.1-9.9 Total Protein 6.6 GM/DL 6.2-8.1 Albumin 4.4 GM/DL 3.2-5.2 Globulin 2.2 GM/DL 2-4 Albumin/Globulin Ratio 2.0 1-3 Bilirubin Total 1.0 mg/dL 0.4-1.5 69 Alkaline Phosphatase 63 U/L 39-117 Alt (SGPT) 30 U/L 17-63 Ast (Sgot) 24 U/L 12-42 eGFR Non- 66.2 > 60 eGFR 85.1 > 60 70 Comp Metabolic Panel 07/20/2010 Sodium 139 mmol/L 135-145 Potassium 4.2 mmol/L 3.5-5.0 Chloride 104 mmol/L 101-111 Co2 (Carbon Dioxide) 28.0 mmol/L 22-32 Anion Gap 7.0 mmol/L 2-11 71 Glucose 107 mg/dL High 70-100 BUN 23 mg/dL 6-24 Creatinine 1.10 mg/dL 0.50-1.40 One Over Creatinine 0.90 BUN/Creatinine Ratio 20.9 High 8-20 Calcium 9.2 mg/dL 8.1-9.9 Total Protein 6.7 GM/DL 6.2-8.1 Albumin 4.5 GM/DL 3.2-5.2 Globulin 2.2 GM/DL 2-4 Albumin/Globulin Ratio 2.0 1-3 Bilirubin Total 1.0 mg/dL 0.4-1.5 72 Alkaline Phosphatase 64 U/L 39-117 Alt (SGPT) 31 U/L 17-63 Ast (Sgot) 23 U/L 12-42 eGFR Non- 66.4 > 60 eGFR 85.4 > 60 73 Lipid Profile (Trig/Chol/HDL) 07/20/2010 Triglyceride 328 mg/dL High 40- 200 Cholesterol 147 mg/dL Less Than 200 74 High Density Lipoprotein 37 mg/dL Low 40-60 75 Cholesterol/HDL Ratio 3.97 AVERAGE 1-4.97 Low Density Lipoprotein 44 mg/dL Less Than 100 76 Laboratory test finding 07/20/2010 CPK (Creatine Kinase) 78 U/L 0-200 Comp Metabolic Panel 05/20/2010 Sodium 132 mmol/L Low 135-145 Potassium 3.7 mmol/L 3.5-5.0 Chloride 97 mmol/L Low 101-111 Co2 (Carbon Dioxide) 27.0 mmol/L 22-32 Anion Gap 8.0 mmol/L 2-11 77 Glucose 109 mg/dL High 70-100 BUN 19 mg/dL 6-24 Creatinine 1.10 mg/dL 0.50-1.40 One Over Creatinine 0.90 BUN/Creatinine Ratio 17.3 8-20 Calcium 8.6 mg/dL 8.1-9.9 Total Protein 6.7 GM/DL 6.2-8.1 Albumin 4.6 GM/DL 3.2-5.2 Globulin 2.1 GM/DL 2-4 Albumin/Globulin Ratio 2.2 1-3 Bilirubin Total 0.7 mg/dL 0.4-1.5 78 Alkaline Phosphatase 67 U/L 39-117 Alt (SGPT) 32 U/L 17-63 Ast (Sgot) 22 U/L 12-42 eGFR Non- 70.5 > 60 eGFR 85.4 > 60 79 Lipid Profile (Trig/Chol/HDL) 05/20/2010 Triglyceride 287 mg/dL High 40- 200 Cholesterol 136 mg/dL Less Than 200 80 High Density Lipoprotein 30 mg/dL Low 40-60 81 Cholesterol/HDL Ratio 4.53 AVERAGE 1-4.97 Low Density Lipoprotein 49 mg/dL Less Than 100 82 Laboratory test finding 05/20/2010 PSA,Diagnostic 0.00 NG/ML 0-4 83 Comp Metabolic Panel 01/12/2010 Sodium 138 mmol/L 135-145 Potassium 4.5 mmol/L 3.5-5.0 Chloride 103 mmol/L 101-111 Co2 (Carbon Dioxide) 28.0 mmol/L 22-32 Anion Gap 7.0 mmol/L 2-11 84 Glucose 104 mg/dL High 70-100 85 BUN 22 mg/dL 6-24 Creatinine 1.20 mg/dL 0.50-1.40 One Over Creatinine 0.80 BUN/Creatinine Ratio 18.3 8-20 Calcium 9.2 mg/dL 8.1-9.9 Total Protein 6.9 GM/DL 6.2-8.1 Albumin 4.4 GM/DL 3.2-5.2 Globulin 2.5 GM/DL 2-4 Albumin/Globulin Ratio 1.8 1-3 Bilirubin Total 0.6 mg/dL 0.4-1.5 86 Alkaline Phosphatase 63 U/L 39-117 Alt (SGPT) 33 U/L 17-63 Ast (Sgot) 24 U/L 12-42 eGFR Non- 63.8 > 60 eGFR 77.2 > 60 87 Lipid Profile (Trig/Chol/HDL) 01/12/2010 Triglyceride 341 mg/dL High 40- 200 Cholesterol 135 mg/dL Less Than 200 88 High Density Lipoprotein 31 mg/dL Low 40-60 89 Cholesterol/HDL Ratio 4.35 AVERAGE 1-4.97 Low Density Lipoprotein 36 mg/dL Less Than 100 90 Laboratory test finding 01/12/2010 CPK (Creatine Kinase) 86 U/L 0-200 CBC With Electronic Diff 10/21/2009 White Blood Count 6.1 CUMM 4.8-10.8 Red Cell Count 4.61 CUMM 4.6-6.2 Hemoglobin 14.4 g/dL 14.0-18.0 Hematocrit 42 % 42-52 Mean Corpuscular Volume 91 um3 80-94 Mean Corpuscular Hemoglob 31 pg 27-31 Mean Corpuscular HGB Cone 34 g/dL 32-36 Redcell Distribution WDTH 14 % 10.5-15 Platelet Count 204 CUMM 150-450 Mean Platelet Volume 7.4 um3 7.4-10.4 Gran % 66.9 % 38-83 Lymph % 21.3 % Low 25-47 Mononuclear % 8.4 % 1-9 Eosinophil % 3.0 % 0-6 Basophil % 0.4 % 0-2 Abs Lymphs 1.3 1.0-4.8 Abs Mononuclear 0.5 0-0.8 Absolute Neutrophil Count 4.1 1.5-7.7 Abs Eosinophils 0.2 0-0.6 Abs Basophils 0 0-0.2 Comp Metabolic Panel 10/21/2009 Sodium 135 mmol/L 135-145 Potassium 4.3 mmol/L 3.5-5.0 Chloride 99 mmol/L Low 101-111 Co2 (Carbon Dioxide) 28.0 mmol/L 22-32 Anion Gap 8.0 mmol/L 2-11 91 Glucose 104 mg/dL High 70-100 92 BUN 20 mg/dL 6-24 Creatinine 1.00 mg/dL 0.50-1.40 One Over Creatinine 1.00 BUN/Creatinine Ratio 20.0 8-20 Calcium 8.9 mg/dL 8.1-9.9 93 Total Protein 6.6 GM/DL 6.2-8.1 Albumin 4.4 GM/DL 3.2-5.2 Globulin 2.2 GM/DL 2-4 Albumin/Globulin Ratio 2.0 1-3 Bilirubin Total 1.0 mg/dL 0.4-1.5 94 Alkaline Phosphatase 65 U/L 39-117 Alt (SGPT) 34 U/L 17-63 Ast (Sgot) 22 U/L 12-42 eGFR Non- 78.7 > 60 eGFR 95.3 > 60 95 Lipid Profile (Trig/Chol/HDL) 10/21/2009 Triglyceride 350 mg/dL High 40- 200 Cholesterol 150 mg/dL Less Than 200 96 High Density Lipoprotein 28 mg/dL Low 40-60 97 Cholesterol/HDL Ratio 5.36 AVERAGE High 1-4.97 Low Density Lipoprotein 52 mg/dL Less Than 100 98 Laboratory test finding 10/21/2009 CPK (Creatine Kinase) 61 U/L 0-200 CBC With Electronic Diff 07/27/2009 White Blood Count 7.7 CUMM 4.8-10.8 Red Cell Count 4.98 CUMM 4.6-6.2 Hemoglobin 14.8 g/dL 14.0-18.0 Hematocrit 45 % 42-52 Mean Corpuscular Volume 90 um3 80-94 Mean Corpuscular Hemoglob 30 pg 27-31 Mean Corpuscular HGB Cone 33 g/dL 32-36 Redcell Distribution WDTH 13 % 10.5-15 Platelet Count 266 CUMM 150-450 Mean Platelet Volume 7.0 um3 Low 7.4-10.4 Gran % 77.5 % 38-83 Lymph % 14.2 % Low 25-47 Mononuclear % 5.8 % 1-9 Eosinophil % 1.5 % 0-6 Basophil % 1.0 % 0-2 Abs Lymphs 1.1 1.0-4.8 Abs Mononuclear 0.4 0-0.8 Absolute Neutrophil Count 6.0 1.5-7.7 Abs Eosinophils 0.1 0-0.6 Abs Basophils 0.1 0-0.2 99 Comp Metabolic Panel 07/27/2009 Sodium 139 mmol/L 135-145 Potassium 4.8 mmol/L 3.5-5.0 Chloride 104 mmol/L 101-111 Co2 (Carbon Dioxide) 28.0 mmol/L 22-32 Anion Gap 7.0 mmol/L 2-11 100 Glucose 127 mg/dL High 70-100 101 BUN 30 mg/dL High 6-24 Creatinine 1.39 mg/dL 0.50-1.40 One Over Creatinine 0.70 BUN/Creatinine Ratio 21.6 High 8-20 Calcium 9.7 mg/dL 8.1-9.9 102 Total Protein 7.9 GM/DL 6.2-8.1 Albumin 4.5 GM/DL 3.2-5.2 Globulin 3.4 GM/DL 2-4 Albumin/Globulin Ratio 1.3 1-3 Bilirubin Total 0.6 mg/dL 0.4-1.5 103 Alkaline Phosphatase 74 U/L 39-117 Alt (SGPT) 52 U/L 17-63 Ast (Sgot) 29 U/L 12-42 eGFR Non- 54.0 > 60 eGFR 65.3 > 60 104 Laboratory test finding 07/27/2009 Troponin-I (TnI) 0.06 NG/ML 105 Protime Stat 07/27/2009 Inr 1.02 0.97-1.03 106 Protime 12.0 SEC 11.5-12.2 107 CBC With Manual Diff Stat 07/19/2009 White Blood Count 8.6 CUMM 4.8-10.8 108 Red Cell Count 4.87 CUMM 4.6-6.2 108 Hemoglobin 14.9 g/dL 14.0-18.0 108 Hematocrit 44 % 42-52 108 Mean Corpuscular Volume 90 um3 80-94 108 Mean Corpuscular Hemoglob 31 pg 27-31 108 Mean Corpuscular HGB Cone 34 g/dL 32-36 108 Redcell Distribution WDTH 13 % 10.5-15 108 Platelet Count 252 CUMM 150-450 108 Mean Platelet Volume 7.4 um3 7.4-10.4 108 Polysegmented Neutrophil 84 % High 38-83 108 Lymphocyte 12 % Low 25-47 108 Monocyte 4 % 0-13 108 Absolute Neutrophil Count 7.2 108 RBC Morphology NORMAL 108 Comp Stat 07/19/2009 Sodium 135 mmol/L 135-145 108 Potassium 3.7 mmol/L 3.5-5.0 108 Chloride 104 mmol/L 101-111 108 Co2 (Carbon Dioxide) 24.0 mmol/L 22-32 108 Anion Gap 7.0 mmol/L 2-11 108, 109 Glucose 145 mg/dL High 70-100 108, 110 BUN 26 mg/dL High 6-24 108 Creatinine 1.20 mg/dL 0.50-1.40 108 One Over Creatinine 0.80 108 BUN/Creatinine Ratio 21.7 High 8-20 108 Calcium 9.5 mg/dL 8.1-9.9 108, 111 Total Protein 7.0 GM/DL 6.2-8.1 108 Albumin 4.5 GM/DL 3.2-5.2 108 Globulin 2.5 GM/DL 2-4 108 Albumin/Globulin Ratio 1.8 1-3 108 Bilirubin Total 0.8 mg/dL 0.4-1.5 108, 112 Alkaline Phosphatase 52 U/L 39-117 108 Alt (SGPT) 40 U/L 17-63 108 Ast (Sgot) 40 U/L 12-42 108 eGFR Non- 64.0 > 60 108 eGFR 77.4 > 60 108, 113 Laboratory test finding 07/19/2009 Troponin-I (TnI) 0.89 NG/ML High 108 , 114 Laboratory test finding 05/13/2009 PSA,Diagnostic 0.00 NG/ML 0-4 115 Lipid Profile 03/13/2009 Triglyceride 389 mg/dL High 40-200 (Trig/Chol/HDL) Cholesterol 180 mg/dL Less Than 200 116 High Density Lipoprotein 27 mg/dL Low 40-60 117 Cholesterol/HDL Ratio 6.67 AVERAGE High 1-4.97 Low Density Lipoprotein 75 mg/dL Less Than 100 118 CBC With Manual Diff 03/13/2009 White Blood Count 6.9 CUMM 4.8-10.8 Red Cell Count 4.66 CUMM 4.6-6.2 Hemoglobin 14.6 g/dL 14.0-18.0 Hematocrit 42 % 42-52 Mean Corpuscular Volume 90 um3 80-94 Mean Corpuscular Hemoglob 31 pg 27-31 Mean Corpuscular HGB Cone 35 g/dL 32-36 Redcell Distribution WDTH 13 % 10.5-15 Platelet Count 205 CUMM 150-450 Mean Platelet Volume 6.9 um3 Low 7.4-10.4 Polysegmented Neutrophil 71 % 38-83 Lymphocyte 18 % Low 25-47 Monocyte 6 % 0-13 Eosenophil 3 % 0-6 Atypical Lymph 2 % 0-6 Absolute Neutrophil Count 4.8 RBC Morphology NORMAL Comp Metabolic Panel 03/13/2009 Sodium 140 mmol/L 135-145 Potassium 4.2 mmol/L 3.5-5.0 Chloride 104 mmol/L 101-111 Co2 (Carbon Dioxide) 30.0 mmol/L 22-32 Anion Gap 6.0 mmol/L 2-11 119 Glucose 110 mg/dL High 70-100 120 BUN 19 mg/dL 6-24 Creatinine 1.10 mg/dL 0.50-1.40 One Over Creatinine 0.90 BUN/Creatinine Ratio 17.3 8-20 Calcium 9.4 mg/dL 8.1-9.9 121 Total Protein 6.7 GM/DL 6.2-8.1 Albumin 4.2 GM/DL 3.2-5.2 Globulin 2.5 GM/DL 2-4 Albumin/Globulin Ratio 1.7 1-3 Bilirubin Total 1.0 mg/dL 0.4-1.5 122 Alkaline Phosphatase 72 U/L 39-117 Alt (SGPT) 27 U/L 17-63 Ast (Sgot) 20 U/L 12-42 eGFR Non- 70.8 > 60 eGFR 85.6 > 60 123 Laboratory test finding 11/06/2008 PSA,Diagnostic 0.00 NG/ML 0-4 124 Laboratory test finding 05/02/2008 PSA,Diagnostic 0.00 NG/ML 0-4 125 Laboratory test finding 10/09/2007 PSA,Diagnostic 0.00 NG/ML 0-4 126 CBC With Electronic Diff 08/11/2007 White Blood Count 6.7 CUMM 4.8-10.8 127 Abs Basophils 0 0-0.2 127 Abs Eosinophils 0.1 0-0.6 127 Absolute Neutrophil Count 5.0 1.5-7.7 127 Abs Lymphs 1.1 1.0-4.8 127 Abs Mononuclear 0.4 0-0.8 127 Basophil % 0.2 % 0-2 127 Hematocrit 45 % 42-52 127, 128 Hemoglobin 15.7 g/dL 14.0-18.0 127 Eosinophil % 1.6 % 0-6 127 Gran % 75.3 % 38-83 127 Lymph % 17.0 % Low 20-45 127 Mean Corpuscular HGB Cone 35 g/dL 32-36 127 Mean Corpuscular Hemoglob 31 pg 27-31 127 Mean Corpuscular Volume 89 um3 80-94 127 Mean Platelet Volume 7.7 um3 7.4-10.4 127 Mononuclear % 5.9 % 1-9 127 Platelet Count 234 CUMM 150-450 127 Red Cell Count 5.02 CUMM 4.6-6.2 127 Redcell Distribution WDTH 13 % 10.5-15 127 Basic Metabolic Panel 08/11/2007 One Over Creatinine 0.83 127 Anion Gap 6.0 mmol/L 2-11 127, 129 BUN 19 mg/dL 6-24 127 Calcium 9.2 mg/dL 8.7-10.2 127 Chloride 106 mmol/L 101-111 127 Co2 (Carbon Dioxide) 26.0 mmol/L 22-32 127 Glucose 134 mg/dL High 70-105 127 Potassium 3.8 mmol/L 3.5-5.0 127 Sodium 138 mmol/L 135-145 127 BUN/Creatinine Ratio 15.8 8-20 127 Creatinine 1.2 mg/dL 0.5-1.4 127 Type And Screen 08/11/2007 Patient Blood Type O POSITIVE 127 Antibody Screen NEGATIVE 127 Specimen Discard Date 08/25/07 127, 130 Surgical Pathology 07/20/2007 Surgical <SEE 131 Pathology NOTE> Comprehensive 07/05/2007 Albumin 4.6 g/dL 3.8-5.5 132 Metabolic Prof Alk. Phos. 75 U/L 22-95 132 Alt (SGPT) 40 U/L 10-40 132 Ast (Sgot) 24 U/L 5-34 132 BUN 23 mg/dL 6-26 132 Calcium 9.5 mg/dL 8.6-10.2 132 Chloride 101 mEq/L 94-112 132 Creatinine 1.4 mg/dL 0.6-1.4 132 Carbon Dioxide 23 mEq/L 21-32 132 Glucose 139 mg/dL High 70-105 132 Sodium 139 mEq/L 134-149 132 Total Bilirubin 0.5 mg/dL 0.2-1.3 132 Total Protein 7.5 g/dL 6.3-8.1 132 Potassium 4.0 mEq/L 3.6-5.5 132 Globulin 2.9 g/dL 2.0-4.8 132 A/G Ratio 1.6 Calc 0.6-2.2 132 BUN/Creat Ratio 16.1 Calc 8.0-36.0 132 Laboratory test 07/05/2007 PSA 4.60 ng/mL High 0.00-4.00 132, 133 finding Lipid Profile 05/25/2007 Cholesterol/HDL 6.45 AVERAGE High 1-4.97 134 (Trig/Chol/HDL) Ratio Cholesterol 200 mg/dL Less Than 200 134, 135 Triglyceride 494 mg/dL High 40-200 134 High Density Lipoprotein 31 mg/dL Low 40-60 134, 136 Laboratory test 10/01/2005 [facility] LIPID;ALT See Image Report finding Laboratory test 06/10/2005 [facility] [place] [facility] LIPID;ALT See Image Report finding Laboratory test 02/01/2005 [facility] [place] [facility] GLUC;LIPID;DWIGHT ALBU See Image Report finding Laboratory test 01/09/2005 [facility] [place] [facility] STOOL C&S;CAMPYLOB See Image Report finding Laboratory test 01/08/2005 [facility] [place] [facility] CMP;CBC;ESR;STOOL See Image Report finding Lipid Profile ([facility]) 07/29/2004 Triglyceride 164 mg/dL 40-200 Cholesterol (a/[facility]) 235 mg/dL High <200 HDL-Chol 45 40-60 Cholesterol / HDL Ratio 5.22 AVG High 1-4.97 LDL, Calculated ([facility]) 157 High <100 Basic Metabolic ([facility]) 06/02/2004 Sodium 141 mmol/L 135-145 Potassium 4.1 mmol/L 3.5-5.0 Chloride 104 mmol/L 101-111 Co2 29.0 mmol/L 22-32 Anion Gap 8.0 mmol/L 2-11 Glucose, Serum (a/[facility]/CTX) 117 mg/dL High 70-105 BUN (a/[facility]) 25 mg/dL High 6-24 Creatinine (a/[facility]/CTX) 1.3 mg/dL 0.5-1.4 BUN/Creatinin Ratio 19.2 8-20 Calcium (a/[facility]) 9.5 mg/dL 8.7-10.2 Lipid Profile ([facility]) 06/02/2004 Triglyceride 248 mg/dL High 40-200 Cholesterol (a/[facility]) 202 mg/dL High <200 HDL-Chol 37 Low 40-60 Cholesterol / HDL Ratio 5.46 AVG High 1-4.97 LDL, Calculated ([facility]) 115 High <100 Basic Metabolic ([facility]) 05/26/2004 Sodium 139 mmol/L 135-145 Potassium 4.4 mmol/L 3.5-5.0 Chloride 100 mmol/L Low 101-111 Co2 28.0 mmol/L 22-32 Anion Gap 11.0 mmol/L 2-11 Glucose, Serum ([facility]/CTX) 134 mg/dL High 70-105 BUN ([facility]) 42 mg/dL High 6-24 Creatinine ([facility]/CTX) 1.6 mg/dL High 0.5-1.4 BUN/Creatinin Ratio 26.3 High 8-20 Calcium ([facility]) 10.4 mg/dL High 8.7-10.2 Liver/Lipid Profile ([facility]) 05/26/2004 Total Protein 7.5 GM/DL 6.2-8.1 Albumin ([facility]) 4.9 3.2-5.2 Globulin 2.6 2-4 A/G Ratio (A/G Ratio) 1.9 1-3 Total Bilirubin 0.8 mg/dL 0.4-1.5 Bilirubin, Direct 0.1 mg/dL 0.1-0.5 Bilirubin, Indirect 0.7 mg/dL 0.1-0.75 Triglyceride 196 mg/dL 40-200 Cholesterol ([facility]) 259 mg/dL High <200 HDL-Chol 43 40-60 Cholesterol / HDL Ratio 6.02 AVG High 1-4.97 LDL, Calculated ([facility]) 177 High <100 Alkaline Phosphatase (F/C/CTX) 68 U/L 39-117 Alt (SGPT) ([facility] 42 17-63 Ast (Sgot) ([facility]) 27 12-42 Liver/Lipid Profile ([facility]) 04/14/2004 Total Protein 7.0 GM/DL 6.2-8.1 Albumin ([facility]) 4.3 3.2-5.2 Globulin 2.7 2-4 A/G Ratio (A/G Ratio) 1.6 1-3 Total Bilirubin 1.0 mg/dL 0.4-1.5 Bilirubin, Direct 0.2 mg/dL 0.1-0.5 Bilirubin, Indirect 0.8 mg/dL High 0.1-0.75 Triglyceride 352 mg/dL High 40-200 Cholesterol ([facility]) 214 mg/dL High <200 HDL-Chol 41 40-60 Cholesterol / HDL Ratio 5.22 AVG High 1-4.97 LDL, Calculated ([facility]) 103 High <100 Alkaline Phosphatase (F/C/CTX) 73 U/L 39-117 Alt (SGPT) ([facility]) 44 17-63 Ast (Sgot) ([facility]) 25 12-42 Laboratory test finding 04/14/2004 Hemoglobin A1c 5.2 % <6.0 (F/C/CTX) Laboratory test finding 01/05/2002 Magnesium 2.7 High 1.2-2.1 Laboratory test finding 07/10/2000 PSA 3.3 ng/ml 0 - 4 137 Occult Blood (3) 03/22/2000 Occult Blood #1 NEG 03/13/00 Occult Blood #2 NEG 03/14/00 Occult Blood #3 NEG 03/15/00 CBC With Diff ([facility]) 03/07/2000 WBC 10.3 /Hpf High 3.6 - 9.6 Lymphocytes 13.3 % Low 20.5 - 51.1 Monocytes 4.2 % 1.7 - 9.3 Granulocytes 82.5 % High 42.2 - 75.2 Lymphocytes 1.4 10^3/uL 0.7 - 4.9 Monocytes 0.4 10^3/uL 0.1 - 0.9 Granulocytes 8.5 10^3/uL High 1.5 - 7.2 RBC 5.25 /Hpf 3.90 - 5.70 Hemoglobin 16.3 g/dL 12.1 - 17.2 Hematocrit 48.1 % 36.1 - 50.3 Mean Corpuscular Vol 91.7 fl 82.2 - 97.4 Mean Corpuscular Hemaglobin 31.1 pg 27.6 - 33.3 Mean Corpuscular Hemo Concen 33.9 g/dL 33.0 - 34.8 RDW 12.5 % 11.6 - 13.7 Platelets 237 10^3/ul 150-400 Mean Platelet Volume 7.9 fl 7.4 - 10.4 Ua - Micro ([facility]) 03/07/2000 Appearance CLEAR DK YELLOW Glucose - Bilirubin - Ketones - SP Grav 1.025 Blood TRACE-LYSED PH 5.0 Protein - Urobil 0.2 Nitrite - Leukocytes - Hyaline - /Lpf Granular - /Lpf WBC'S 8-10 RBC'S 1-3 Mucus SMALL AMOUNT /Lpf Epith OCCASIONAL Bacteria OCCASIONAL Amorphous - /Lpf Crystals - /Lpf Laboratory test finding 03/07/2000 Urine Culture NEGATIVE Laboratory test finding 03/07/2000 PSA 3.3 NG/ML 0.0-4.0 Comp Metabolic ([facility]) 03/07/2000 Albumin 4.5 GM/DL 3.80 - 5.50 Alkaline Phosphatase 81 U/L 39-130 Bilirubin, Total 0.6 mg/dL 0.2-1.3 BUN 15 mg/dL 10- Calcium 8.6 mg/dL 7.4-9.2 Creatinine 1.3 mg/dL 0.6-1.4 Glucose 102 mg/dL 70 - 118 Ast Sgot 19 U/L 9-44 Alt (SGPT) 26 U/L 10-40 Total Protein 7.4 g/dL 6.3-8.1 Sodium 150 134-149 Potassium 4.3 mEq/L 3.6-5.5 Chloride 104 mEq/L 94-112 Co2 29 21-32 Globulin 2.9 2.0-4.8 Albumin / Globulin Ratio 1.6 0.6-2.2 BUN/Creatinin Ratio 11.5 8.0-36 Lipid Profile ([facility]) 03/07/2000 Cholesterol 199 mg/dL 140-200 Triglyceride 249 mg/dL High 30-150 VLDL 20 mg/dL 0-50 LDL-Calculated 110 0-160 HDL-Chol 39 mg/dL 30-70 Basic Metabolic ([facility]) 09/02/1999 Sodium 140 mmol/L 135-145 Potassium 4.3 mmol/L 3.5-5.0 Chloride 102 mmol/L 95-108 Co2 24.7 mmol/L 21-33 Glucose 114 mg/dL High 70-105 BUN 26 mg/dL High 6-22 Creatinine 1.2 mg/dL 0.5-1.4 BUN/Creatinin Ratio 21.7 High 8-20 Calcium 9.2 mg/dL 8.7-10.2 Laboratory test finding 05/29/1999 PSA 3.6 NG/ML 0.0-4.0 Comp Metabolic ([facility]) 05/29/1999 Albumin 4.6 GM/DL 3.80 - 5.50 Alkaline Phosphatase 103 U/L 39-130 Bilirubin, Total 1.0 mg/dL 0.2-1.3 BUN 16 mg/dL 10-26 Calcium 9.0 mg/dL 7.4-9.2 Creatinine 0.7 mg/dL 0.6-1.4 Glucose 99 mg/dL 70 - 118 Ast Sgot 20 U/L 9-44 Alt (SGPT) 31 U/L High 0-28 Total Protein 7.6 g/dL 6.3-8.1 Sodium 137 mEq/L 134-149 Potassium 4.7 mEq/L 3.6-5.5 Chloride 101 mEq/L 94-112 Co2 29 21-32 Globulin 3.0 2.0-4.8 Albumin / Globulin Ratio 1.5 0.6-2.2 BUN/Creatinin Ratio 22.9 8.0-36 Lipid Profile (a) 05/29/1999 Cholesterol 215 mg/dL High 140-200 HDL-Chol 35 mg/dL > 35 Triglyceride 334 mg/dL High 30-150 VLDL 67 mg/dL High 0-50 LDL-Calculated 113 0-160 CBC With Diff ([facility]) 05/29/1999 WBC 7.2 /Hpf 3.6 - 9.6 Lymphocytes 17.8 % Low 20.5 - 51.1 Monocytes 3.3 % 1.7 - 9.3 Granulocytes 78.9 % High 42.2 - 75.2 Lymphocytes 1.3 10^3/uL 0.7 - 4.9 Monocytes 0.2 10^3/uL 0.1 - 0.9 Granulocytes 5.7 10^3/uL 1.5 - 7.2 RBC 5.40 /Hpf 3.90 - 5.70 Hemoglobin 17.2 g/dL 12.1 - 17.2 Hematocrit 49.5 % 36.1 - 50.3 Mean Corpuscular Vol 91.6 fl 82.2 - 97.4 Mean Corpuscular Hemaglobin 31.8 pg 27.6 - 33.3 Mean Corpuscular Hemo Concen 34.7 g/dL 33.0 - 34.8 RDW 12.4 % 11.6 - 13.7 Platelets 237 10^3/ul 202 - 386 Mean Platelet Volume 7.3 fl Low 7.4 - 10.4 Laboratory test finding 05/29/1999 Thyroxine, Total (T4) 7.39 g/dL 3.0- 11.0 TSH 2.21 uIU/ML 0.3 - 4.5 1 Because ethnic data is not always readily available, this report includes an eGFR for both -Americans and non- Americans. The National Kidney Disease Education Program (NKDEP) does not endorse the use of the MDRD equation for patients that are not between the ages of 18 and 70, are , have extremes of body size, muscle mass, or nutritional status, or are non- or non-. According to the National Kidney Foundation, irrespective of diagnosis, the stage of the disease is based on the level of kidney function: Stage Description GFR(mL/min/1.73 m(2)) 1 Kidney damage with normal or decreased GFR 90 2 Kidney damage with mild decrease in GFR 60-89 3 Moderate decrease in GFR 30-59 4 Severe decrease in GFR 15-29 5 Kidney failure <15 (or dialysis) 2 Desirable <150 Borderline high 150-199 High 200-499 Very High >500 3 Desirable <200 Borderline high 200-239 High >239 4 Low <40 Desirable: 40-60 High: >60 5 Desirable: <100 mg/dL Near Optimal: 100-129 mg/dL Borderline High: 130-159 mg/dL High: 160-189 mg/dL Very High: >189 mg/dL 6 Serum levels of PSA measured using the [employer] DXI Hybritech immunoassay should not be interpreted as absolute evidence of the presence or absence of disease. The PSA value should be used in conjunction with other pertinent clinical diagnostic procedures. A PSA value in the range of 0.1 to 0.6 ng/ml is indeterminate if being used as an indicator of recurrent or residual disease. The values obtained with different assay methods or kits cannot be used interchangeably. 7 FASTING 8 Because ethnic data is not always readily available, this report includes an eGFR for both -Americans and non- Americans. The National Kidney Disease Education Program (NKDEP) does not endorse the use of the MDRD equation for patients that are not between the ages of 18 and 70, are , have extremes of body size, muscle mass, or nutritional status, or are non- or non-. According to the [employer] Kid[employer], irrespective of diagnosis, the stage of the disease is based on the level of kidney function: Stage Description GFR(mL/min/1.73 m(2)) 1 Kidney damage with normal or decreased GFR 90 2 Kidney damage with mild decrease in GFR 60-89 3 Moderate decrease in GFR 30-59 4 Severe decrease in GFR 15-29 5 Kidney failure <15 (or dialysis) 9 Desirable <150 Borderline high 150-199 High 200-499 Very High >500 10 Desirable <200 Borderline high 200-239 High >239 11 Low <40 Desirable: 40-60 High: >60 12 Desirable: <100 mg/dL Near Optimal: 100-129 mg/dL Borderline High: 130-159 mg/dL High: 160-189 mg/dL Very High: >189 mg/dL 13 FASTING 14 Because ethnic data is not always readily available, this report includes an eGFR for both -Americans and non- Americans. The National Kidney Disease Education Program (NKDEP) does not endorse the use of the MDRD equation for patients that are not between the ages of 18 and 70, are , have extremes of body size, muscle mass, or nutritional status, or are non- or non-. According to the National Kid[employer] Foundation, irrespective of diagnosis, the stage of the disease is based on the level of kidney function: Stage Description GFR(mL/min/1.73 m(2)) 1 Kidney damage with normal or decreased GFR 90 2 Kidney damage with mild decrease in GFR 60-89 3 Moderate decrease in GFR 30-59 4 Severe decrease in GFR 15-29 5 Kidney failure <15 (or dialysis) 15 Desirable <150 Borderline high 150-199 High 200-499 Very High >500 16 Desirable <200 Borderline high 200-239 High >239 17 Low <40 Desirable: 40-60 High: >60 18 Unable to calculate LDL as triglyceride is > 400 19 Reference Range and Interpretation: TnI (ng/mL) Interpretation Less Than 0.03 ng/mL Not supportive of diagnosis of NE 0.03 - 0.50 ng/mL Indeterminate: suggest serial studies if clinically indicated. Greater than 0.5 ng/mL Consistent with diagnosis of NE 20 1 sst 21 Negative <1:80 Borderline 1:80 Positive >1:80 22 A positive HARIKA result may occur in healthy individuals or be associated with a variety of diseases. See interpre- tation below: Pattern Antigen Detected Suggested Disease Association Homogeneous DNA(ds,ss,), High titers - SLE (Smooth) Histone Speckled Sm, S[employer] S[employer], SCL-70, SLE,MCTD,Scleroderma,Sjogrens SS-A/SS-B Nucleolar SCL-70, PM-1/SCL High titers Scleroderma Poly- myositis/Scleroderma Overlap Centromere Centromere PSS w/Crest syndrome variable 23 PT IS FASTING 24 Because ethnic data is not always readily available, this report includes an eGFR for both -Americans and non- Americans. The National Kidney Disease Education Program (NKDEP) does not endorse the use of the MDRD equation for patients that are not between the ages of 18 and 70, are , have extremes of body size, muscle mass, or nutritional status, or are non- or non-. According to the National Kidney Foundation, irrespective of diagnosis, the stage of the disease is based on the level of kidney function: Stage Description GFR(mL/min/1.73 m(2)) 1 Kidney damage with normal or decreased GFR 90 2 Kidney damage with mild decrease in GFR 60-89 3 Moderate decrease in GFR 30-59 4 Severe decrease in GFR 15-29 5 Kidney failure <15 (or dialysis) 25 Desirable <150 Borderline high 150-199 High 200-499 Very High >500 26 Desirable <200 Borderline high 200-239 High >239 27 Low <40 Desirable: 40-60 High: >60 28 Desirable <100 Near Optimal 100-129 Borderline high 130-159 High 160-189 Very High >189 29 PT IS FASTING 30 Because ethnic data is not always readily available, this report includes an eGFR for both -Americans and non- Americans. The National Kidney Disease Education Program (NKDEP) does not endorse the use of the MDRD equation for patients that are not between the ages of 18 and 70, are , have extremes of body size, muscle mass, or nutritional status, or are non- or non-. According to the National Kidney Foundation, irrespective of diagnosis, the stage of the disease is based on the level of kidney function: Stage Description GFR(mL/min/1.73 m(2)) 1 Kidney damage with normal or decreased GFR 90 2 Kidney damage with mild decrease in GFR 60-89 3 Moderate decrease in GFR 30-59 4 Severe decrease in GFR 15-29 5 Kidney failure <15 (or dialysis) 31 Desirable <150 Borderline high 150-199 High 200-499 Very High >500 32 Desirable <200 Borderline high 200-239 High >239 33 Low <40 Desirable: 40-60 High: >60 34 Desirable <100 Near Optimal 100-129 Borderline high 130-159 High 160-189 Very High >189 35 FASTING 36 FASTING FSTING WITHIN 2 WEEKS CC PMD CC: Dr. Conley 37 Because ethnic data is not always readily available, this report includes an eGFR for both -Americans and non- Americans. The National Kidney Disease Education Program (NKDEP) does not endorse the use of the MDRD equation for patients that are not between the ages of 18 and 70, are , have extremes of body size, muscle mass, or nutritional status, or are non- or non-. According to the National Kidney Foundation, irrespective of diagnosis, the stage of the disease is based on the level of kidney function: Stage Description GFR(mL/min/1.73 m(2)) 1 Kidney damage with normal or decreased GFR 90 2 Kidney damage with mild decrease in GFR 60-89 3 Moderate decrease in GFR 30-59 4 Severe decrease in GFR 15-29 5 Kidney failure <15 (or dialysis) 38 Desirable <150 Borderline high 150-199 High 200-499 Very High >500 39 Low <40 Desirable: 40-60 High: >60 40 LDL Interpretation: Low Risk Optimal Level: LDL Less than 100 mg/dL Near or Above Optimal: LDL 100-129 mg/dL Borderline High Risk: LDL 130-159 mg/dL High Risk: LDL 160-189 mg/dL Very High Risk: LDL Greater than 189 mg/dL 41 Serum levels of PSA measured using the [employer] DXI Hybritech immunoassay should not be interpreted as absolute evidence of the presence or absence of disease. The PSA value should be used in conjunction with other pertinent clinical diagnostic procedures. A PSA value in the range of 0.1 to 0.6 ng/ml is indeterminate if being used as an indicator of recurrent or residual disease. The values obtained with different assay methods or kits cannot be used interchangeably. 42 Because ethnic data is not always readily available, this report includes an eGFR for both -Americans and non- Americans. The National Kidney Disease Education Program (NKDEP) does not endorse the use of the MDRD equation for patients that are not between the ages of 18 and 70, are , have extremes of body size, muscle mass, or nutritional status, or are non- or non-. According to the National Kidney Foundation, irrespective of diagnosis, the stage of the disease is based on the level of kidney function: Stage Description GFR(mL/min/1.73 m(2)) 1 Kidney damage with normal or decreased GFR 90 2 Kidney damage with mild decrease in GFR 60-89 3 Moderate decrease in GFR 30-59 4 Severe decrease in GFR 15-29 5 Kidney failure <15 (or dialysis) 43 Because ethnic data is not always readily available, this report includes an eGFR for both -Americans and non- Americans. The National Kidney Disease Education Program (NKDEP) does not endorse the use of the MDRD equation for patients that are not between the ages of 18 and 70, are , have extremes of body size, muscle mass, or nutritional status, or are non- or non-. According to the National Kidney Foundation, irrespective of diagnosis, the stage of the disease is based on the level of kidney function: Stage Description GFR(mL/min/1.73 m(2)) 1 Kidney damage with normal or decreased GFR 90 2 Kidney damage with mild decrease in GFR 60-89 3 Moderate decrease in GFR 30-59 4 Severe decrease in GFR 15-29 5 Kidney failure <15 (or dialysis) 44 HDL Interpretation: Undesirable: High Risk: Less than 40 MG/DL Desirable: Low Risk: Greater than 60 MG/DL 45 LDL Interpretation: Low Risk Optimal Level: LDL Less than 100 MG/DL Near or Above Optimal: LDL 100-129 MG/DL Borderline High Risk: LDL 130-159 MG/DL High Risk: LDL 160-189 MG/DL Very High Risk: LDL Greater than 189 MG/DL 46 Serum levels of PSA measured using the [employer] DXI Hybritech immunoassay should not be interpreted as absolute evidence of the presence or absence of disease. The PSA value should be used in conjunction with other pertinent clinical diagnostic procedures. A PSA value in the range of 0.1 to 0.6 ng/ml is indeterminate if being used as an indicator of recurrent or residual disease. The values obtained with different assay methods or kits cannot be used interchangeably. 47 A metabolite of Naproxen, O-desmethylnaproxen, has been shown to interfere with the Jendrassik-Freddie method for measuring total bilirubin. Samples from patients who have taken Naproxen have shown spurious elevation in total bilirubin levels. 48 Because ethnic data is not always readily available, this report includes an eGFR for both -Americans and non- Americans. The National Kidney Disease Education Program (NKDEP) does not endorse the use of the MDRD equation for patients that are not between the ages of 18 and 70, are , have extremes of body size, muscle mass, or nutritional status, or are non- or non-. According to the National Kidney Foundation, irrespective of diagnosis, the stage of the disease is based on the level of kidney function: Stage Description GFR(mL/min/1.73 m(2)) 1 Kidney damage with normal or decreased GFR 90 2 Kidney damage with mild decrease in GFR 60-89 3 Moderate decrease in GFR 30-59 4 Severe decrease in GFR 15-29 5 Kidney failure <15 (or dialysis) 49 HDL Interpretation: Undesirable: High Risk: Less than 40 MG/DL Desirable: Low Risk: Greater than 60 MG/DL 50 LDL Interpretation: Low Risk Optimal Level: LDL Less than 100 MG/DL Near or Above Optimal: LDL 100-129 MG/DL Borderline High Risk: LDL 130-159 MG/DL High Risk: LDL 160-189 MG/DL Very High Risk: LDL Greater than 189 MG/DL 51 FASTING 52 CHOLESTEROL INTERPRETATION: Desirable: Less than 200 MG/DL Borderline-High Risk: 200-239 MG/DL High-Risk: 240 MG/DL and over 53 HDL INTERPRETATION: Undesirable: High Risk: Less than 40 MG/DL Desirable: Low Risk: Greater than 60 MG/DL 54 LDL INTERPRETATION: Low Risk Optimal Level: LDL Less than 100 MG/DL Near or Above Optimal: LDL 100-129 MG/DL Borderline High Risk: LDL 130-159 MG/DL High Risk: LDL 160-189 MG/DL Very High Risk: LDL Greater than 189 MG/DL 55 Anion gap measurement may be of limited value in the presence of any alkalosis, especially in a combined acid base disorder. . 56 A metabolite of Naproxen, O-desmethylnaproxen, has been shown to interfere with the Jendrassik-Lacoste method for measuring total bilirubin. Samples from patients who have taken Naproxen have shown spurious elevation in total bilirubin levels. 57 Because ethnic data is not always readily available, this report includes an eGFR for both -Americans and non- Americans. The National Kidney Disease Education Program (NKDEP) does not endorse the use of the MDRD equation for patients that are not between the ages of 18 and 70, are , have extremes of body size, muscle mass, or nutritional status, or are non- or non-. According to the National Kidney Foundation, irrespective of diagnosis, the stage of the disease is based on the level of kidney function: Stage Description GFR(mL/min/1.73 m(2)) 1 Kidney damage with normal or decreased GFR 90 2 Kidney damage with mild decrease in GFR 60-89 3 Moderate decrease in GFR 30-59 4 Severe decrease in GFR 15-29 5 Kidney failure <15 (or dialysis) 58 CHOLESTEROL INTERPRETATION: Desirable: Less than 200 MG/DL Borderline-High Risk: 200-239 MG/DL High-Risk: 240 MG/DL and over 59 HDL INTERPRETATION: Undesirable: High Risk: Less than 40 MG/DL Desirable: Low Risk: Greater than 60 MG/DL 60 LDL INTERPRETATION: Low Risk Optimal Level: LDL Less than 100 MG/DL Near or Above Optimal: LDL 100-129 MG/DL Borderline High Risk: LDL 130-159 MG/DL High Risk: LDL 160-189 MG/DL Very High Risk: LDL Greater than 189 MG/DL 61 Anion gap measurement may be of limited value in the presence of any alkalosis, especially in a combined acid base disorder. . 62 A metabolite of Naproxen, O-desmethylnaproxen, has been shown to interfere with the Jendrassik-Freddie method for measuring total bilirubin. Samples from patients who have taken Naproxen have shown spurious elevation in total bilirubin levels. 63 Because ethnic data is not always readily available, this report includes an eGFR for both -Americans and non- Americans. The National Kidney Disease Education Program (NKDEP) does not endorse the use of the MDRD equation for patients that are not between the ages of 18 and 70, are , have extremes of body size, muscle mass, or nutritional status, or are non- or non-. According to the National Kidney Foundation, irrespective of diagnosis, the stage of the disease is based on the level of kidney function: Stage Description GFR(mL/min/1.73 m(2)) 1 Kidney damage with normal or decreased GFR 90 2 Kidney damage with mild decrease in GFR 60-89 3 Moderate decrease in GFR 30-59 4 Severe decrease in GFR 15-29 5 Kidney failure <15 (or dialysis) 64 * SERUM LEVELS OF PSA MEASURED USING THE ANTOINETTE [employer] ACCESS HYBRITECH IMMUNOASSAY SHOULD NOT BE INTERPRETED ABSOLUTE EVIDENCE OF THE PRESENCE OR ABSENCE OF DISEASE. THE PSA VALUE SHOULD BE USED IN CONJUNCTION WITH OTHER PERTINENT CLINICAL DIAGNOSTIC PROCEDURES. A PSA value in the range of 0.1 to 0.6 ng/ml is indeterminate if being used as an indicator of recurrent or residual disease. . The values obtained with different assay methods of kits cannot be used interchangeably. 65 CHOLESTEROL INTERPRETATION: Desirable: Less than 200 MG/DL Borderline-High Risk: 200-239 MG/DL High-Risk: 240 MG/DL and over 66 HDL INTERPRETATION: Undesirable: High Risk: Less than 40 MG/DL Desirable: Low Risk: Greater than 60 MG/DL 67 LDL INTERPRETATION: Low Risk Optimal Level: LDL Less than 100 MG/DL Near or Above Optimal: LDL 100-129 MG/DL Borderline High Risk: LDL 130-159 MG/DL High Risk: LDL 160-189 MG/DL Very High Risk: LDL Greater than 189 MG/DL 68 Anion gap measurement may be of limited value in the presence of any alkalosis, especially in a combined acid base disorder. . 69 A metabolite of Naproxen, O-desmethylnaproxen, has been shown to interfere with the Jendrassik-Freddie method for measuring total bilirubin. Samples from patients who have taken Naproxen have shown spurious elevation in total bilirubin levels. 70 Because ethnic data is not always readily available, this report includes an eGFR for both -Americans and non- Americans. The National Kidney Disease Education Program (NKDEP) does not endorse the use of the MDRD equation for patients that are not between the ages of 18 and 70, are , have extremes of body size, muscle mass, or nutritional status, or are non- or non-. According to the National Kidney Foundation, irrespective of diagnosis, the stage of the disease is based on the level of kidney function: Stage Description GFR(mL/min/1.73 m(2)) 1 Kidney damage with normal or decreased GFR 90 2 Kidney damage with mild decrease in GFR 60-89 3 Moderate decrease in GFR 30-59 4 Severe decrease in GFR 15-29 5 Kidney failure <15 (or dialysis) 71 Anion gap measurement may be of limited value in the presence of any alkalosis, especially in a combined acid base disorder. . 72 A metabolite of Naproxen, O-desmethylnaproxen, has been shown to interfere with the Jendrassik-Freddie method for measuring total bilirubin. Samples from patients who have taken Naproxen have shown spurious elevation in total bilirubin levels. 73 Because ethnic data is not always readily available, this report includes an eGFR for both -Americans and non- Americans. The National Kidney Disease Education Program (NKDEP) does not endorse the use of the MDRD equation for patients that are not between the ages of 18 and 70, are , have extremes of body size, muscle mass, or nutritional status, or are non- or non-. According to the National Kidney Foundation, irrespective of diagnosis, the stage of the disease is based on the level of kidney function: Stage Description GFR(mL/min/1.73 m(2)) 1 Kidney damage with normal or decreased GFR 90 2 Kidney damage with mild decrease in GFR 60-89 3 Moderate decrease in GFR 30-59 4 Severe decrease in GFR 15-29 5 Kidney failure <15 (or dialysis) 74 CHOLESTEROL INTERPRETATION: Desirable: Less than 200 MG/DL Borderline-High Risk: 200-239 MG/DL High-Risk: 240 MG/DL and over 75 HDL INTERPRETATION: Undesirable: High Risk: Less than 40 MG/DL Desirable: Low Risk: Greater than 60 MG/DL 76 LDL INTERPRETATION: Low Risk Optimal Level: LDL Less than 100 MG/DL Near or Above Optimal: LDL 100-129 MG/DL Borderline High Risk: LDL 130-159 MG/DL High Risk: LDL 160-189 MG/DL Very High Risk: LDL Greater than 189 MG/DL 77 Anion gap measurement may be of limited value in the presence of any alkalosis, especially in a combined acid base disorder. . 78 A metabolite of Naproxen, O-desmethylnaproxen, has been shown to interfere with the Jendrassik-Freddie method for measuring total bilirubin. Samples from patients who have taken Naproxen have shown spurious elevation in total bilirubin levels. 79 Because ethnic data is not always readily available, this report includes an eGFR for both -Americans and non- Americans. The National Kidney Disease Education Program (NKDEP) does not endorse the use of the MDRD equation for patients that are not between the ages of 18 and 70, are , have extremes of body size, muscle mass, or nutritional status, or are non- or non-. According to the National Kidney Foundation, irrespective of diagnosis, the stage of the disease is based on the level of kidney function: Stage Description GFR(mL/min/1.73 m(2)) 1 Kidney damage with normal or decreased GFR 90 2 Kidney damage with mild decrease in GFR 60-89 3 Moderate decrease in GFR 30-59 4 Severe decrease in GFR 15-29 5 Kidney failure <15 (or dialysis) 80 CHOLESTEROL INTERPRETATION: Desirable: Less than 200 MG/DL Borderline-High Risk: 200-239 MG/DL High-Risk: 240 MG/DL and over 81 HDL INTERPRETATION: Undesirable: High Risk: Less than 40 MG/DL Desirable: Low Risk: Greater than 60 MG/DL 82 LDL INTERPRETATION: Low Risk Optimal Level: LDL Less than 100 MG/DL Near or Above Optimal: LDL 100-129 MG/DL Borderline High Risk: LDL 130-159 MG/DL High Risk: LDL 160-189 MG/DL Very High Risk: LDL Greater than 189 MG/DL 83 * SERUM LEVELS OF PSA MEASURED USING THE ANTOINETTE [employer] ACCESS HYBRITECH IMMUNOASSAY SHOULD NOT BE INTERPRETED ABSOLUTE EVIDENCE OF THE PRESENCE OR ABSENCE OF DISEASE. THE PSA VALUE SHOULD BE USED IN CONJUNCTION WITH OTHER PERTINENT CLINICAL DIAGNOSTIC PROCEDURES. A PSA value in the range of 0.1 to 0.6 ng/ml is indeterminate if being used as an indicator of recurrent or residual disease. . 84 Anion gap measurement may be of limited value in the presence of any alkalosis, especially in a combined acid base disorder. . 85 Note change in reference range as of 12/14/07. The change was based on recommendations from the [employer]. 86 A metabolite of Naproxen, O-desmethylnaproxen, has been shown to interfere with the Jendrassik-Freddie method for measuring total bilirubin. Samples from patients who have taken Naproxen have shown spurious elevation in total bilirubin levels. 87 Because ethnic data is not always readily available, this report includes an eGFR for both -Americans and non- Americans. The National Kidney Disease Education Program (NKDEP) does not endorse the use of the MDRD equation for patients that are not between the ages of 18 and 70, are , have extremes of body size, muscle mass, or nutritional status, or are non- or non-. According to the National Kidney Foundation, irrespective of diagnosis, the stage of the disease is based on the level of kidney function: Stage Description GFR(mL/min/1.73 m(2)) 1 Kidney damage with normal or decreased GFR 90 2 Kidney damage with mild decrease in GFR 60-89 3 Moderate decrease in GFR 30-59 4 Severe decrease in GFR 15-29 5 Kidney failure <15 (or dialysis) 88 CHOLESTEROL INTERPRETATION: Desirable: Less than 200 MG/DL Borderline-High Risk: 200-239 MG/DL High-Risk: 240 MG/DL and over 89 HDL INTERPRETATION: Undesirable: High Risk: Less than 40 MG/DL Desirable: Low Risk: Greater than 60 MG/DL 90 LDL INTERPRETATION: Low Risk Optimal Level: LDL Less than 100 MG/DL Near or Above Optimal: LDL 100-129 MG/DL Borderline High Risk: LDL 130-159 MG/DL High Risk: LDL 160-189 MG/DL Very High Risk: LDL Greater than 189 MG/DL 91 Anion gap measurement may be of limited value in the presence of any alkalosis, especially in a combined acid base disorder. . 92 Note change in reference range as of 12/14/07. The change was based on recommendations from the [employer]. 93 Please note change in reference range effective 07 . 94 A metabolite of Naproxen, O-desmethylnaproxen, has been shown to interfere with the Jendrassik-Freddie method for measuring total bilirubin. Samples from patients who have taken Naproxen have shown spurious elevation in total bilirubin levels. 95 Because ethnic data is not always readily available, this report includes an eGFR for both -Americans and non- Americans. The National Kidney Disease Education Program (NKDEP) does not endorse the use of the MDRD equation for patients that are not between the ages of 18 and 70, are , have extremes of body size, muscle mass, or nutritional status, or are non- or non-. According to the National Kidney Foundation, irrespective of diagnosis, the stage of the disease is based on the level of kidney function: Stage Description GFR(mL/min/1.73 m(2)) 1 Kidney damage with normal or decreased GFR 90 2 Kidney damage with mild decrease in GFR 60-89 3 Moderate decrease in GFR 30-59 4 Severe decrease in GFR 15-29 5 Kidney failure <15 (or dialysis) 96 CHOLESTEROL INTERPRETATION: Desirable: Less than 200 MG/DL Borderline-High Risk: 200-239 MG/DL High-Risk: 240 MG/DL and over 97 HDL INTERPRETATION: Undesirable: High Risk: Less than 40 MG/DL Desirable: Low Risk: Greater than 60 MG/DL 98 LDL INTERPRETATION: Low Risk Optimal Level: LDL Less than 100 MG/DL Near or Above Optimal: LDL 100-129 MG/DL Borderline High Risk: LDL 130-159 MG/DL High Risk: LDL 160-189 MG/DL Very High Risk: LDL Greater than 189 MG/DL 99 Lymphopenia % 100 Anion gap measurement may be of limited value in the presence of any alkalosis, especially in a combined acid base disorder. . 101 Note change in reference range as of 12/14/07. The change was based on recommendations from the [employer]. 102 Please note change in reference range effective 07 . 103 A metabolite of Naproxen, O-desmethylnaproxen, has been shown to interfere with the Jendrassik-Freddie method for measuring total bilirubin. Samples from patients who have taken Naproxen have shown spurious elevation in total bilirubin levels. 104 Because ethnic data is not always readily available, this report includes an eGFR for both -Americans and non- Americans. The National Kidney Disease Education Program (NKDEP) does not endorse the use of the MDRD equation for patients that are not between the ages of 18 and 70, are , have extremes of body size, muscle mass, or nutritional status, or are non- or non-. According to the National Kidney Foundation, irrespective of diagnosis, the stage of the disease is based on the level of kidney function: Stage Description GFR(mL/min/1.73 m(2)) 1 Kidney damage with normal or decreased GFR 90 2 Kidney damage with mild decrease in GFR 60-89 3 Moderate decrease in GFR 30-59 4 Severe decrease in GFR 15-29 5 Kidney failure <15 (or dialysis) 105 New Reference Range and Interpretation effective 01/26/2002 TnI (ng/ml) INTERPRETATION Less Than 0.06 ng/mL NOT SUPPORTIVE OF DIAGNOSIS OF NE 0.06 - 0.50 ng/ml INDETERMINATE: SUGGEST SERIAL STUDIES IF CLINICALLY INDICATED. Greater than 0.5 ng/mL CONSISTENT WITH DIAGNOSIS OF NE . 106 Recommended INR for Patients on Oral Anticoagulants Prophylaxis 2.0 - 3.0 Treatment of thrombosis 2.0 - 3.0 Prevention of embolism 2.0 - 3.0 Prevention of embolism from prosthetic heart valves 2.5 - 3.5 107 DIAGNOSIS,TREATMENT,AND THERAPY MUST BE BASED ON THE INR VALUE ALONE. 108 COMMENTS: N 109 Anion gap measurement may be of limited value in the presence of any alkalosis, especially in a combined acid base disorder. . 110 Note change in reference range as of 12/14/07. The change was based on recommendations from the [employer]. 111 Please note change in reference range effective 07 . 112 A metabolite of Naproxen, O-desmethylnaproxen, has been shown to interfere with the Jendrassik-Freddie method for measuring total bilirubin. Samples from patients who have taken Naproxen have shown spurious elevation in total bilirubin levels. 113 Because ethnic data is not always readily available, this report includes an eGFR for both -Americans and non- Americans. The National Kidney Disease Education Program (NKDEP) does not endorse the use of the MDRD equation for patients that are not between the ages of 18 and 70, are , have extremes of body size, muscle mass, or nutritional status, or are non- or non-. According to the National Kidney Foundation, irrespective of diagnosis, the stage of the disease is based on the level of kidney function: Stage Description GFR(mL/min/1.73 m(2)) 1 Kidney damage with normal or decreased GFR 90 2 Kidney damage with mild decrease in GFR 60-89 3 Moderate decrease in GFR 30-59 4 Severe decrease in GFR 15-29 5 Kidney failure <15 (or dialysis) 114 VERBAL TO KLEVER BY ANABEL at 1036 on 07/19/09. Results read back accurately. RESULT TO BE VERIFIED BY REPEAT ANALYSIS RESULTS VERIFIED BY REPEAT ANALYSIS ON THE SAME SAMPLE. REPEATED RESULT IS:0.89 New Reference Range and Interpretation effective 01/26/2002 TnI (ng/ml) INTERPRETATION Less Than 0.06 ng/mL NOT SUPPORTIVE OF DIAGNOSIS OF NE 0.06 - 0.50 ng/ml INDETERMINATE: SUGGEST SERIAL STUDIES IF CLINICALLY INDICATED. Greater than 0.5 ng/mL CONSISTENT WITH DIAGNOSIS OF NE . 115 * SERUM LEVELS OF PSA MEASURED USING THE ANTOINETTE [employer] ACCESS HYBRITECH IMMUNOASSAY SHOULD NOT BE INTERPRETED ABSOLUTE EVIDENCE OF THE PRESENCE OR ABSENCE OF DISEASE. THE PSA VALUE SHOULD BE USED IN CONJUNCTION WITH OTHER PERTINENT CLINICAL DIAGNOSTIC PROCEDURES. A PSA value in the range of 0.1 to 0.6 ng/ml is indeterminate if being used as an indicator of recurrent or residual disease. . 116 CHOLESTEROL INTERPRETATION: Desirable: Less than 200 MG/DL Borderline-High Risk: 200-239 MG/DL High-Risk: 240 MG/DL and over 117 HDL INTERPRETATION: Undesirable: High Risk: Less than 40 MG/DL Desirable: Low Risk: Greater than 60 MG/DL 118 LDL INTERPRETATION: Low Risk Optimal Level: LDL Less than 100 MG/DL Near or Above Optimal: LDL 100-129 MG/DL Borderline High Risk: LDL 130-159 MG/DL High Risk: LDL 160-189 MG/DL Very High Risk: LDL Greater than 189 MG/DL 119 Anion gap measurement may be of limited value in the presence of any alkalosis, especially in a combined acid base disorder. . 120 Note change in reference range as of 12/14/07. The change was based on recommendations from the [employer]. 121 Please note change in reference range effective 07 . 122 A metabolite of Naproxen, O-desmethylnaproxen, has been shown to interfere with the Jendrassik-Freddie method for measuring total bilirubin. Samples from patients who have taken Naproxen have shown spurious elevation in total bilirubin levels. 123 Because ethnic data is not always readily available, this report includes an eGFR for both -Americans and non- Americans. The National Kidney Disease Education Program (NKDEP) does not endorse the use of the MDRD equation for patients that are not between the ages of 18 and 70, are , have extremes of body size, muscle mass, or nutritional status, or are non- or non-. According to the National Kidney Foundation, irrespective of diagnosis, the stage of the disease is based on the level of kidney function: Stage Description GFR(mL/min/1.73 m(2)) 1 Kidney damage with normal or decreased GFR 90 2 Kidney damage with mild decrease in GFR 60-89 3 Moderate decrease in GFR 30-59 4 Severe decrease in GFR 15-29 5 Kidney failure <15 (or dialysis) 124 CONSISTENT WITH PREVIOUS RESULTS * SERUM LEVELS OF PSA MEASURED USING THE ANTOINETTE Cyto[employer]ic ACCESS HYBRITECH IMMUNOASSAY SHOULD NOT BE INTERPRETED ABSOLUTE EVIDENCE OF THE PRESENCE OR ABSENCE OF DISEASE. THE PSA VALUE SHOULD BE USED IN CONJUNCTION WITH OTHER PERTINENT CLINICAL DIAGNOSTIC PROCEDURES. A PSA value in the range of 0.1 to 0.6 ng/ml is indeterminate if being used as an indicator of recurrent or residual disease. . 125 * SERUM LEVELS OF PSA MEASURED USING THE ANTOINETTE [employer]toLogic ACCESS HYBRITECH IMMUNOASSAY SHOULD NOT BE INTERPRETED ABSOLUTE EVIDENCE OF THE PRESENCE OR ABSENCE OF DISEASE. THE PSA VALUE SHOULD BE USED IN CONJUNCTION WITH OTHER PERTINENT CLINICAL DIAGNOSTIC PROCEDURES. A PSA value in the range of 0.1 to 0.6 ng/ml is indeterminate if being used as an indicator of recurrent or residual disease. . 126 RESULTS VERIFIED BY REPEAT ANALYSIS ON THE SAME SAMPLE. REPEATED RESULT IS:0.00 * SERUM LEVELS OF PSA MEASURED USING THE ANTOINETTE [employer]toLogic ACCESS HYBRITECH IMMUNOASSAY SHOULD NOT BE INTERPRETED ABSOLUTE EVIDENCE OF THE PRESENCE OR ABSENCE OF DISEASE. THE PSA VALUE SHOULD BE USED IN CONJUNCTION WITH OTHER PERTINENT CLINICAL DIAGNOSTIC PROCEDURES. A PSA value in the range of 0.1 to 0.6 ng/ml is indeterminate if being used as an indicator of recurrent or residual disease. . 127 SDS 08/23/07 128 Lymphopenia % 129 Anion gap measurement may be of limited value in the presence of any alkalosis, especially in a combined acid base disorder. . 130 PREADMISSION TESTING SAMPLES FOR BLOOD BANK WILL BE HELD FOR 14 DAYS FROM THE DATE OF COLLECTION *IF* THE FOLLOWING CRITERIA ARE MET: 1) THE PATIENT HAS *NOT* BEEN IN THE LAST 3 MONTHS. 2) THE PATIENT HAS *NOT* BEEN TRANSFUSED IN THE LAST 3 MONTHS. PREADMISSION TESTING SAMPLES WILL *NOT* BE HELD FOR 14 DAYS FROM PATIENTS WHO IN THE LAST 3 MONTHS: 1) HAVE BEEN 2) HAVE BEEN TRANSFUSED THESE PATIENTS *MUST* BE COLLECTED WITHIN 3 DAYS OF THE SURGERY DATE. 131 ----- RUN DATE: 07/24/07 [facility] NMI LIVE PAGE 1 RUN TIME: 1552 Specimen Inquiry RUN USER: INTERFACE [id number] CORTEZ SHEEHAN/Vlad <REG REF 07/19> ([id number]) Spike John MD -- Specimen: :[id number] Spec Date: 07/20/07 [facility] Dr: Spike encarnacion MD Spec Type: SURGICAL P Received: 07/21/07 Copies to: Justin Conley MD SPECIMEN 1) LEFT LOBE PROSTATE BIOPSY APEX (APEX 2) 2) LEFT LOBE PROSTATE BIOPSY BASE (BASE 3) 3) RIGHT LOBE PROSTATE BIOPSY APEX (APEX 2) 4) RIGHT LOBE PROSTATE BIOPSY BASE (BASE 3) HISTORY PRE-OP DIAGNOSIS: Moderate enlarged prostate, left lobe larger and firmer , elevated PSA 4.6 GROSS DESCRIPTION 1) The specimen is received in formalin labelled Cortez Sheehan, Left Prostate Lobe [place], and consists of two, crane, soft tissue cores measuring 2.1 cm. and 2.0 x 0.1 cm. Submitted entirely, one cassette. 2) The specimen is received in formalin labelled Cortez Wisemande, Left Prostate Lobe Base, and consists of three, crane, soft tissue cores measuring 2.1 cm., 1.8 cm., and 1.9 x 0.1 cm. Submitted entirely, one cassette. 3) The specimen is received in formalin labelled Cortez Sheehan, Right Prostate Lobe [place], and consists of two, crane, soft tissue cores measuring 1.9 cm. and 1.7 x 0.1 cm. Submitted entirely, one cassette. 4) The specimen is received in formalin labelled Cortez Wisemande, Right Prostate Lobe Base, and consists of three, crane, soft tissue cores measuring 1.8 cm., 1.7 cm., and 1.7 x 0.1 cm. Submitted entirely, one cassette. DIAGNOSIS 1) Prostate, left apex, core biopsies - A) Benign prostate tissue with partial atrophy and chronic inflammation. B) No evidence of neoplasia identified. 2) Prostate, left base, core biopsies - A) Benign prostate tissue with partial atrophy and chronic inflammation. B) No evidence of neoplasia identified. -- DEPARTMENT OF PATHOLOGY, [address] [place] [address] [facility] Permit #[id number] Kyle Cobian M.D. Director of Laboratories -- -- RUN DATE: 07/24/07 [facility] NMI LIVE PAGE 2 RUN TIME: 1552 Specimen Inquiry RUN USER: INTERFACE -- SPEC #: [id number] PATIENT: CORTEZ SHEEHAN #[id number] (Continued) -- DIAGNOSIS (Continued) 3) Prostate, right apex, core biopsies - A) Focal high grade prostatic intraepithelial neoplasia. B) No invasive carcinoma identified. 4) Prostate, right base, core biopsies - A. Prostatic adenocarcinoma, small acinar type: 1. Chris score: 3 + 3=6. 2. Extent of Local Invasion: Tumor involves two foci on two of three cores, measures 0.1 cm. in maximal aggregate dimension and occupies 5% of total core length. 3. Perineural Invasion: Not seen. 4. Angiolymphatic Invasion: Not seen. B. Other findings: Focal high grade prostatic intraepithelial neoplasia. Signed Electronically by: KYLE COBIAN MD 07/24/07 1552 -- -- DEPARTMENT OF PATHOLOGY, [address] [place] [address] [facility] Permit #[id number] Kyle Cobian M.D. Director of Laboratories -- 132 SPECIMEN MODERATELY LIPEMIC 133 RESULT JACK'D 134 FASTING 135 Classification: Borderline High . 136 Classification: Low . 137 . RESULTS OBTAINED USING BlackboardA METHODOLOGY. SERUM PSA RESULTS SHOULD BE USED ONLY IN CONJUNCTION WITH INFORMATION AVAILABLE FROM THE CLINICAL EVALUATION OF THE PATIENT AND OTHER DIAGNOSTIC PROCEDURES. Procedures Date CPT Code Description Status 01/04/2018 26733 Remove Impact Cerumen Irrigati Completed 08/29/2012 57675 Holter Monitor Completed 08/28/2012 48054 Holter Monitor Completed 08/28/2012 68479 Electrocardiogram Complete Completed 01/21/2011 Mammogram Completed 09/30/2010 23247 Anoscopy Diagnostic Completed Encounters Type Date Location Provider CPT E/M Dx Office Visit 02/08/2014 11:20a Main Office Justin Conley, [address] 719.89 M.D. Office Visit 08/29/2012 2:30p Main Office Justin Conley 64573 785.1 M.D. Office Visit 08/28/2012 2:00p Main Office Justin Conley 99481 785.1 M.D. Office Visit 08/23/2011 9:40a Main Office Justin Conley 54026 530.81 M.D. Office Visit 09/30/2010 3:00p Main Office Justin Conley 80328 569.3 M.D. Office Visit 09/15/2010 11:10a [facility] Justin Conley 40739 723.1 M.D. Office Visit 07/30/2009 1:40p Main Office Justin Conley 96882 410.82 M.D. Office Visit 03/10/2009 3:40p Main Office Justin Conley 89836 401.1 M.D. Office Visit 03/11/2008 3:00p Main Office Justin Conley 88114 530.81 M.D. 401.1 Office Visit 08/12/2007 1:30p Main Office Edward London M.D. 57460 461.0 401.9 V10.46 Office Visit 07/05/2007 11:20a Main Office Justin Conley M.D. 52588 401.1 272.0 V76.44 Office Visit 02/21/2006 10:00a Main Office Justin Conley M.D. 41245 530.81 401.1 Office Visit 04/07/2005 11:00a Main Office Justin Conley M.D. 00237 530.81 729.1 Office Visit 11/11/2003 8:40a Main Office Justin Conley M.D. 72648 789.00 Office Visit 10/24/2003 12:45p Main Office Edward London M.D. 73847 577.0 789.00 Office Visit 04/15/2003 12:10p Main Office Justin Conley M.D. 20272 530.81 Office Visit 08/13/2002 10:00a Main Office Justin Conley M.D. 34660 724.5 Office Visit 01/05/2002 1:00p Main Office Justin Conley M.D. 45542 Office Visit 06/16/2001 3:10p Main Office Justin Conley M.D. 21084 Office Visit 06/09/2000 10:00a Main Office Edward London M.D. 57936 Office Visit 03/07/2000 3:00p Main Office Edward London M.D. 29916 Plan of Care 01/04/2018 - Hope Calix, [id number] Dizziness and giddinessNew Medication: Fluticasone Propionate 50 mcg/ActComments:F\\u pending labs, pt will discuss sx with partnership manager at the next visitFollow up:Followup:. (Follow up)M54.5 Low back painComments:F\\u pending x-ray resultFollow up:Followup:. (Follow up) H61.22 Impacted cerumen, left earFollow up:Followup:. (Follow up)
--- NOTE | 2018-01-19 13:40 | ED ---
Dizziness - HPI Summary HPI Summary: A 77 y/o male presents to the ED c/o light-headness with 4 episodes in the past 6 weeks, he had an episode this AM that last approx 4 hours before spontaneously resolving. He states feeling improved at bedside. Associated sx: mild photophobia, mildly blurry vision, difficulty trouble concentrating described as "fogginess." He denies balance issues, dizziness. He denies changes in his diet. He took his BP twice this AM and it was high, approx 200/ 100 and 190/90 respectively. The pt lives alone and has a PMHx of GA and [address] Pt [address] Claudio, Cardiology. - History Of Current Complaint Chief Complaint: EDDizziness Stated Complaint: LIGHTHEADED/HIGH BP THIS AM PER HOME DEVICE Time Seen by Provider: 01/19/18 13:17 Hx Obtained From: Patient Onset/Duration: Resolved Timing: Intermittent Episode Lasting - 3 hours Character: Lightheaded Associated Signs And Symptoms: Positive: Visual Changes - mild blurriness, mild photophobia, Other: - pos: "fogginess." neg: dizziness, neg: balance changes - Allergies/Home Medications Allergies/Adverse Reactions: Allergies Allergy/AdvReac Type Severity Reaction Status Date / Time atorvastatin Allergy Unknown Verified 11/16/17 09:16 Reaction Details ezetimibe Allergy Unknown Verified 11/16/17 09:16 Reaction Details Penicillins Allergy Unknown Verified 11/16/17 09:16 Reaction Details simvastatin Allergy Unknown Verified 11/16/17 09:16 Reaction Details PMH/Surg Hx/FS Hx/Imm Hx Previously Healthy: No Endocrine/Hematology History: Denies: Hx Diabetes Cardiovascular History: Reports: Hx Angina, Hx Coronary Artery Disease - stent x2 LAD, Hx Hypercholesterolemia, Hx Hypertension, Hx Myocardial Infarction Denies: Hx Valvular Heart Disease Respiratory History: Denies: Hx Asthma, Hx Chronic Obstructive Pulmonary Disease (COPD) History: Reports: Other Problems/Disorders - prostate cancer with prostatectomy Sensory History: Reports: Hx Contacts or Glasses Denies: Hx Hearing Aid Opthamlomology History: Reports: Hx Contacts or Glasses - Cancer History Cancer Type, Location and Year: prostate Hx Chemotherapy: No - Surgical History Surgery Procedure, Year, and Place: two stents place, 2009 and 2010 - Immunization History Date of Influenza Vaccine: 2017 Immunizations Up to Date: Yes Infectious Disease History: No Infectious Disease History: Denies: Hx Clostridium Difficile, Hx Hepatitis, Hx Human Immunodeficiency Virus (HIV), Hx of Known/Suspected MRSA, Hx Shingles, Hx Tuberculosis, History Other Infectious Disease, Traveled Outside the [place] in Last 30 Days - Family History Known Family History: Positive: Hypertension - Social History Occupation: Retired Lives: Alone Alcohol Use: None Substance Use Type: Reports: None Hx Tobacco Use: Yes Smoking Status (MU): Former Smoker Review of Systems Positive: Photophobia - mild, Blurred Vision - mild Neurological: Other - pos: light-headedness, "foggy". neg: dizziness All Other Systems Reviewed And Are Negative: Yes Physical Exam - Summary Physical Exam Summary: Appearance: The patient is well-nourished in no acute distress and in no acute pain. Skin: The skin is warm and dry and skin color reflects adequate perfusion. HEENT: The head is normocephalic and atraumatic. The pupils are equal and reactive. The conjunctivae are clear and without drainage. Nares are patent and without drainage. Mouth reveals moist mucous membranes and the throat is without erythema and exudate. The external ears are intact. The ear canals are patent and without drainage. The tympanic membranes are intact. Neck: the neck is supple with full range of motion and non-tender. There are no carotid bruits. There is no neck vein distension. Respiratory: Chest is non-tender. Lungs are clear to auscultation and breath sounds are symmetrical and equal. Cardiovascular: Heart is regular rate and rhythm. There is no murmur or rub auscultated. There is no peripheral edema and pulses are symmetrical and equal. Abdomen: The abdomen is soft and non-tender. There are normal bowel sounds heard in all four quadrants and there is no organomegaly palpated. Musculoskeletal: There is no back tenderness noted. Extremities are non-tender with full range of motion. There is good capillary refill. There is no peripheral edema or calf tenderness elicited. Neurological: Patient is alert and oriented to person, place and time. The patient has symmetrical motor strength in all four extremities. Cranial nerves are grossly intact. Deep tendon reflexes are symmetrical and equal in all four extremities. Psychiatric: The patient has an appropriate affect and does not exhibit any anxiety or depression. Triage Information Reviewed: Yes Vital Signs On Initial Exam: Initial Vitals Temp Pulse Resp BP Pulse Ox 97.4 F 70 16 174/94 94 01/19/18 12:58 01/19/18 12:58 01/19/18 12:58 01/19/18 12:58 01/19/18 12:58 Vital Signs Reviewed: Yes Diagnostics - Vital Signs Vital Signs Temp Pulse Resp BP Pulse Ox 01/19/18 12:58 97.4 F 70 16 174/94 94 - Laboratory Result Diagrams: 01/19/18 15:38 01/19/18 15:38 Lab Statement: Any lab studies that have been ordered have been reviewed, and results considered in the medical decision making process. Re-Evaluation - Re-Evaluation 1 Re-Evaluation Time: 17:23 Dizzy Course/Dx - Course Course Of Treatment: Mr. Sheehan is a 77 y.o. man with known CAD who has had 4 concerning episodes in the past 2 weeks. Each episode lasted 3-4 hours and consisted of feeling 'fuzzy' in the head and just not feeling right. He does not recall his heart racing which he has experience with in the past with SVT. 3 of the 4 episodes occurred in the AM and the other at about noon. He had no CP or SOB and no apparent focal neurological changes. He was able to drive to [place] during 2 of the episodes. During the episode this AM, it occured to him to check his BP and it was quite high. This was late in the episod and he soon began to feel a bit better and checked his BP again and it was better. By the time he got to the ED he was asymptomatic and his vitals were fine. He was monitored and labs were checked including a delayed troponin. He remained asymptomatic and. I recommended that he F/U with Dr. Claudio for further W/U and consideration of his BP medications as he is on 5 already and I don't want to interfere. - Diagnoses Provider Diagnoses: Syncope, Hypertension - Provider Notifications Discussed Care Of Patient With: Francesco Claudio - Cardio Time Discussed With Above Provider: 14:06 Discharge - Sign-Out/Discharge Documenting (check all that apply): Patient Departure - DC - Discharge Plan Condition: Stable Disposition: HOME Patient Education Materials: Syncope (ED), Hypertension (ED) Referrals: Justin Conley MD [Primary Care Provider] - 2 Days Additional Instructions: Please return to the emergency department if you experience new or worsening symptoms. Follow up with your primary care provider in 2-3 days. - Billing Disposition and Condition Condition: STABLE Disposition: Home - Attestation Statements Document Initiated by Ramin: Yes Documenting Scribe: Maggie Temple Provider For Whom Seane is Documenting (Include Credential): Dr. Kasi Villarreal MD Scribe Attestation: Maggie Henderson, scribed for Dr. Kasi Villarreal MD on 01/20/18 at 1025. Scribe Documentation Reviewed: Yes Provider Attestation: The documentation as recorded by the Maggie mendez accurately reflects the service I personally performed and the decisions made by me, Dr. Kasi Villarreal MD
[2018-01-19 15:45] LABS: ABS Basophils 0.1 10^3/ul (0-0.2); ABS Eosinophils 0.2 10^3/ul (0-0.6); ABS Lymphocytes 1.3 10^3/ul (1.0-4.8); ABS Monocytes 0.5 10^3/ul (0-0.8); ABS Neutrophils 6.1 10^3/ul (1.5-7.7); ABS Nucleated RBC 0 10^3/ul; Eosinophil % 2.2 % (0-6); Hematocrit 40 % (42-52); Hemoglobin 13.7 g/dl (14.0-18.0); Mean Corpuscular HGB Conc 34 g/dl (31-36); Mean Corpuscular Hemoglobin 31 pg (27-31); Mean Corpuscular Volume 91 fL (80-94); Mean Platelet Volume 7.6 um3 (7.4-10.4); Nucleated Red Blood Cells % 0; Platelet Count 185 10^3/ul (150-450); Red Blood Count 4.36 10^6/ul (4.00-5.40); Red Cell Distribution Width 14 % (10.5-15); White Blood Count 8.1 10^3/ul (3.5-10.8)
[2018-01-19 15:53] LABS: INR 0.95 (0.77-1.02)
[2018-01-19 15:55] LABS: Urine Appearance Clear; Urine Blood Negative (Negative); Urine Color Straw; Urine Ketones Negative (Negative); Urine Protein Negative (Negative); Urine Specific Gravity 1.012 (1.010-1.030); Urine Urobilinogen Negative (Negative)
[2018-01-19 19:00] VITALS: BP 144/73
== END | disposition home or self-care (01) ==
LOC: ED 12:31
DX: R55 Syncope and collapse (principal); I10 Essential (primary) hypertension; Z87.891 Personal history of nicotine dependence; I25.10 Atherosclerotic heart disease of native coronary artery without angina pectoris; E78.00 Pure hypercholesterolemia, unspecified; I25.2 Old myocardial infarction; Z85.46 Personal history of malignant neoplasm of prostate
CPT/HCPCS: 36415; 80053; 81003; 83605; 83735; 84443; 84484; 85025; 85379; 85610; 93005; 99284

== ENCOUNTER 2018-01-20 17:52 | Emergency (ER) | payer MEDICARE ==
--- NOTE | 2018-01-20 18:22 | ED ---
Palpitations / Dysrhythmia - HPI Summary HPI Summary: The pt is a 77 y/o male presenting to the [facility] c/o dysrhythmia since 1 day ago worsened 1700 today. He measured his pulse yesterday at home and thinks that he skipped beats. He notes light,elevated BP at 200 at the highest, and anxiety but denies CP. The pt was seen yesterday at [facility] for lightheadedness. - History of Current Complaint Chief Complaint: EDDysrhythmPalp Time Seen by Provider: 01/20/18 18:13 Hx Obtained From: Patient Onset/Duration: Lasting Days - 1 day, Still Present, Worse Since - 1700 today Character: Skipped Beats Associated Signs & Symptoms: Negative - CP, Lightheadedness - Allergy/Home Medications Allergies/Adverse Reactions: Allergies Allergy/AdvReac Type Severity Reaction Status Date / Time atorvastatin Allergy Unknown Verified 01/20/18 18:01 Reaction Details ezetimibe Allergy Unknown Verified 01/20/18 18:01 Reaction Details Penicillins Allergy Unknown Verified 01/20/18 18:01 Reaction Details simvastatin Allergy Unknown Verified 01/20/18 18:01 Reaction Details Home Medications: Home Medications Acetaminophen/Diphenhydramine [Acetaminophen Pm Caplet] 1 tab PO BEDTIME [History Confirmed 01/20/18] Aspirin EC TAB* [Ecotrin EC Low Dose 81 MG*] 81 mg PO DAILY 01/20/18 [History Confirmed 01/20/18] Carvedilol TAB* [Coreg TAB*] 3.125 mg PO BID 01/20/18 [History Confirmed ] Epleronone (NF) [Inspra (NF)] 50 mg PO DAILY 01/20/18 [History Confirmed ] Famotidine TAB* [Pepcid 20 MG TAB*] 20 mg PO BID 01/20/18 [History Confirmed ] Fluticasone NASAL SPRAY 50MCG* [Flonase NASAL SPRAY 50MCG*] 2 spray BOTH NARES DAILY 01/20/18 [History Confirmed 01/20/18] Irbesartan (NF) [Avapro (NF)] 150 mg PO DAILY 01/20/18 [History Confirmed ] Rosuvastatin (NF) [Crestor (NF)] 5 mg PO DAILY 01/20/18 [History Confirmed 01/20] amLODIPine TAB* [Norvasc 5 mg TAB*] 5 mg PO BID 01/20/18 [History Confirmed ] PMH/Surg Hx/FS Hx/Imm Hx Previously Healthy: No Endocrine/Hematology History: Denies: Hx Diabetes Cardiovascular History: Reports: Hx Angina, Hx Coronary Artery Disease - stent x2 LAD, Hx Hypercholesterolemia, Hx Hypertension, Hx Myocardial Infarction Denies: Hx Valvular Heart Disease Respiratory History: Denies: Hx Asthma, Hx Chronic Obstructive Pulmonary Disease (COPD) History: Reports: Other Problems/Disorders - prostate cancer with prostatectomy Sensory History: Reports: Hx Contacts or Glasses Denies: Hx Hearing Aid Opthamlomology History: Reports: Hx Contacts or Glasses - Cancer History Cancer Type, Location and Year: prostate Hx Chemotherapy: No - Surgical History Surgery Procedure, Year, and Place: two stents place, 2009 and 2010 - Immunization History Date of Influenza Vaccine: 2016 Infectious Disease History: No Infectious Disease History: Denies: Hx Clostridium Difficile, Hx Hepatitis, Hx Human Immunodeficiency Virus (HIV), Hx of Known/Suspected MRSA, Hx Shingles, Hx Tuberculosis, History Other Infectious Disease, Traveled Outside the [place] in Last 30 Days - Family History Known Family History: Positive: Hypertension - Social History Occupation: Retired Lives: With Family Alcohol Use: None Substance Use Type: Reports: None Hx Tobacco Use: Yes Smoking Status (MU): Former Smoker Review of Systems Positive: Other - Positive: lightheadedness, elevated blood pressure Cardiovascular: Other - Positive: Skipped beats Negative: Chest Pain Positive: Anxious All Other Systems Reviewed And Are Negative: Yes Physical Exam - Summary Physical Exam Summary: Appearance: Well appearing, no pain distress Skin: warm, dry, reflects adequate perfusion Head/face: normal Eyes: EOMI, SALO ENT: normal Neck: supple, non-tender Respiratory: CTA, breath sounds present Cardiovascular: RRR, pulses symmetrical Abdomen: non-tender, soft Bowel: present Musculoskeletal: normal, strength/ROM intact Neuro: normal, sensory motor intact, A&Ox3 Triage Information Reviewed: Yes Vital Signs On Initial Exam: Initial Vitals Temp Pulse Resp BP Pulse Ox 98.4 F 73 19 171/74 96 01/20/18 17:58 01/20/18 17:58 01/20/18 17:58 01/20/18 17:58 01/20/18 17:58 Vital Signs Reviewed: Yes Diagnostics - Vital Signs Vital Signs Temp Pulse Resp BP Pulse Ox 01/20/18 18:10 75 15 169/111 96 01/20/18 18:06 74 95 01/20/18 17:58 98.4 F 73 19 171/74 96 - Laboratory Result Diagrams: 01/20/18 19:15 01/20/18 19:15 Lab Statement: Any lab studies that have been ordered have been reviewed, and results considered in the medical decision making process. - EKG 18:05 Cardiac Rate: NL - 74 bpm EKG Interpretation: RBBB EKG Comparison: No Significant Change - Similar to the one done on 01/19/2018 Course/Dx - Course Course Of Treatment: A 77-year-old M presents to the ED with a CC of dysrhythmia since 1 day ago worsened 1700 today. He measured his pulse yesterday at home and thinks that he skipped beats. He notes light, elevated BP at 200 at the highest and anxiety but denies CP. The pt was seen yesterday at [facility] for lightheadedness. A physical exam is normal. An EKG reveals RBBB. The patient will be discharged with a final Dx of palpitations and dehydration. Pt denied admission. Allergies noted. advised to follow up with pmd - Diagnoses Differential Diagnosis/HQI/PQRI: Positive: Other - palpitations Provider Diagnoses: Palpitations, Dehydration Discharge - Sign-Out/Discharge Documenting (check all that apply): Patient Departure - DC - Discharge Plan Condition: Improved Disposition: HOME Patient Education Materials: Heart Palpitations (ED), Dehydration (ED) Referrals: Justin Conley MD [Primary Care Provider] - 3 Days Additional Instructions: Return to ED for any new or worsening symptoms - Billing Disposition and Condition Condition: IMPROVED Disposition: Home - Attestation Statements Document Initiated by Scribe: Yes Documenting Scribe: Meera Cullen Provider For Whom Scribe is Documenting (Include Credential): Dr. Zachary Morel MD Scribe Attestation: Meera Henderson, scribed for Dr. Zachary Morel MD on 01/20/18 at 2108. Scribe Documentation Reviewed: Yes Provider Attestation: The documentation as recorded by the scribe, Meera Chepkemoi accurately reflects the service I personally performed and the decisions made by me, Dr. Zachary Morel MD
[2018-01-20 19:29] LABS: ABS Basophils 0.1 10^3/ul (0-0.2); ABS Eosinophils 0.2 10^3/ul (0-0.6); ABS Lymphocytes 1.3 10^3/ul (1.0-4.8); ABS Monocytes 0.6 10^3/ul (0-0.8); ABS Neutrophils 6.1 10^3/ul (1.5-7.7); ABS Nucleated RBC 0 10^3/ul; Eosinophil % 2.5 % (0-6); Hematocrit 39 % (42-52); Hemoglobin 13.3 g/dl (14.0-18.0); Lymphocyte % 15.1 % (25-47); Mean Corpuscular HGB Conc 34 g/dl (31-36); Mean Corpuscular Hemoglobin 32 pg (27-31); Mean Corpuscular Volume 92 fL (80-94); Mean Platelet Volume 7.6 um3 (7.4-10.4); Nucleated Red Blood Cells % 0; Platelet Count 186 10^3/ul (150-450); Red Cell Distribution Width 14 % (10.5-15); White Blood Count 8.3 10^3/ul (3.5-10.8)
[2018-01-20 19:47] LABS: EGFR Non-African American 55.5 (>60)
[2018-01-21 07:27] VITALS: BP 166/86
== END 2018-01-20 20:45 | disposition home or self-care (01) ==
LOC: ED 17:52
DX: R00.2 Palpitations (principal); E86.0 Dehydration; F41.9 Anxiety disorder, unspecified; Z87.891 Personal history of nicotine dependence
CPT/HCPCS: 36415; 80053; 84484; 85025; 93005; 99283

== ENCOUNTER 2018-05-04 10:55 | Emergency (ER) | payer MEDICARE ==
[2018-05-04] MEDS ORDERED: Carvedilol TAB* 6.25 MG PO ONE (11:38)
--- NOTE | 2018-05-04 11:44 | ED ---
Hypertension - HPI Summary HPI Summary: The patient is a 77 y/o M presenting to [facility] with a chief complaint of becoming lightheaded this morning at 0830. At time of onset, he took his blood pressure, which he reports was 210/100, but his normal is 145/68. He took his usual medications for HTN at 0730, and he took an additional Aspirin at 1030 in the waiting room. He additionally c/o headache pressure behind his eyes, photophobia, sensitivity to sound, and achy abd pain. He denies chest pain or pressure, SOB, fever, chills, diaphoresis, urinary or BM changes, diarrhea, constipation, nausea, vomiting, and cough. His symptoms are not worsened by movement. He states he is feeling better in the ED. He has hx of HTN and MT. He also sees Dr. Claudio, who has been more concerned about Afib, and he has had prior PVCs while in the ED about six months ago. Former smoker, no substance use , no EtOH. - History of Current Complaint Chief Complaint: EDHypertension Stated Complaint: LIGHT HEADED Time Seen by Provider: 05/04/18 11:08 Hx Obtained From: Patient Onset/Duration: Started Hours Ago - at 0830 this morning Timing: Lasting Hours Reported Blood Pressure Prior To Arrival: 210/100 Aggravating Factor(s): Nothing Alleviating Factor(s): Nothing Associated Signs & Symptoms: Other: - POSITIVE: headache pressure behind his eyes, photophobia, sensitivity to sound, achy abd pain; NEGATIVE: chest pain or pressure, SOB, fever, chills, diaphoresis, urinary or BM changes, diarrhea, constipation, nausea, vomiting, cough. - Allergies/Home Medications Allergies/Adverse Reactions: Allergies Allergy/AdvReac Type Severity Reaction Status Date / Time atorvastatin Allergy Unknown Verified 05/04/18 11:06 Reaction Details ezetimibe Allergy Unknown Verified 05/04/18 11:06 Reaction Details Penicillins Allergy Unknown Verified 05/04/18 11:06 Reaction Details simvastatin Allergy Unknown Verified 05/04/18 11:06 Reaction Details PMH/Surg Hx/FS Hx/Imm Hx Endocrine/Hematology History: Denies: Hx Diabetes Cardiovascular History: Reports: Hx Angina, Hx Coronary Artery Disease - stent x2 LAD, Hx Hypercholesterolemia, Hx Hypertension, Hx Myocardial Infarction Denies: Hx Valvular Heart Disease Respiratory History: Denies: Hx Asthma, Hx Chronic Obstructive Pulmonary Disease (COPD) History: Reports: Other Problems/Disorders - prostate cancer with prostatectomy Sensory History: Reports: Hx Contacts or Glasses Denies: Hx Hearing Aid Opthamlomology History: Reports: Hx Contacts or Glasses - Cancer History Cancer Type, Location and Year: prostate Hx Chemotherapy: No - Surgical History Surgery Procedure, Year, and Place: two stents place, 2009 and 2010 - Immunization History Date of Influenza Vaccine: 2016 Infectious Disease History: No Infectious Disease History: Denies: Hx Clostridium Difficile, Hx Hepatitis, Hx Human Immunodeficiency Virus (HIV), Hx of Known/Suspected MRSA, Hx Shingles, Hx Tuberculosis, History Other Infectious Disease, Traveled Outside the [place] in Last 30 Days - Family History Known Family History: Positive: Hypertension - Social History Alcohol Use: None Hx Substance Use: No Substance Use Type: Reports: None Hx Tobacco Use: Yes Smoking Status (MU): Former Smoker Do You Chew or Dip Tobacco: No Have You Chewed or Dipped Tobacco in the LAST YEAR: No Review of Systems Negative: Fever, Chills, Skin Diaphoresis Positive: Photophobia. Negative: Erythema Positive: Other - hypersensitivity to sound. Negative: Sore Throat Negative: Chest Pain - or chest pressure Negative: Shortness Of Breath, Cough Positive: Abdominal Pain - suprapubic aching, Other - NEGATIVE: constipation. Negative: Diarrhea Negative: dysuria, hematuria Negative: Myalgia, Edema Negative: Rash Neurological: Other - POSITIVE: lightheaded; NEGATIVE: dizziness/room-spinning, unsteady gait, loss of sleep Positive: Headache - pressure behind eyes All Other Systems Reviewed And Are Negative: Yes Physical Exam - Summary Physical Exam Summary: Constitutional: Well-developed, Well-nourished, Alert. (-) Distressed Skin: Warm, Dry HENT: Normocephalic; Atraumatic Eyes: Conjunctiva normal Neck: Musculoskeletal ROM normal neck. (-) JVD, (-) Stridor, (-) Tracheal deviation Cardio: Rhythm regular, rate normal, Heart sounds normal; Intact distal pulses; The pedal pulses are 2+ and symmetric. Radial pulses are 2+ and symmetric. (-) Murmur Pulmonary/Chest wall: Effort normal. (-) Respiratory distress, (-) Wheezes, (-) Rales Abd: Soft, (-) epigastric tenderness, (-) Distension, (-) Guarding, (-) Rebound Musculoskeletal: (-) Edema Lymph: (-) Cervical adenopathy Neuro: Alert, Oriented x3, NIH: 0 Psych: Mood and affect Normal Triage Information Reviewed: Yes Vital Signs On Initial Exam: Initial Vitals Temp Pulse Resp BP Pulse Ox 97.8 F 78 19 182/92 94 05/04/18 11:03 05/04/18 11:03 05/04/18 11:03 05/04/18 11:03 05/04/18 11:03 Vital Signs Reviewed: Yes Diagnostics - Vital Signs Vital Signs Temp Pulse Resp BP Pulse Ox 05/04/18 11:12 78 23 174/91 97 05/04/18 11:11 77 18 97 05/04/18 11:03 97.8 F 78 19 182/92 94 - Laboratory Result Diagrams: 05/04/18 11:49 05/04/18 11:49 Lab Statement: Any lab studies that have been ordered have been reviewed, and results considered in the medical decision making process. - EKG 1113 Cardiac Rate: NL - 76 BPM EKG Rhythm: Sinus Rhythm Summary of EKG Findings: RBBB. No STEMI. National Institutes Of Health - NIH Scale Level of Consciousness: Alert/Keenly Responsive Ask Patient the Month and His/Her Age: Both Correct Ask Pt to Open/Close Eyes and Business Services Officer/Release Non-Paretic Hand: Both Correctly Best Gaze (Only Horizontal Eye Movement): Normal Visual Field Testing: No Visual Loss Facial Paresis-Pt to Smile & Close Eyes or Grimace Symmetry: Normal/Symmetrical Motor Function - Right Arm: No Drift-Holds 10 Seconds Motor Function - Left Arm: No Drift-Holds 10 Seconds Motor Function - Right Leg: No Drift-Holds 10 Seconds Motor Function - Left Leg: No Drift-Holds 10 Seconds Limb Ataxia-Must be out of Proportion to Weakness Present: Absent Sensory (Use Pinprick to Test Arms/Legs/Trunk/Face): Normal Best Language (Describe Picture, Name Items): No Aphasia Dysarthria (Read Several Words): Normal Extinction and Inattention: No Abnormality Total Score: 0 Re-Evaluation - Re-Evaluation First Eval Re-Evaluation Time: 13:45 Change: Improved Comment: He states he is feeling better. His blood pressure is down since arrival. We discussed discharge home. Hypertension Course/Dx - Course Course Of Treatment: The patient is a 77 y/o M presenting to [facility] with a chief complaint of becoming lightheaded this morning at 0830. At time of onset, he took his blood pressure, which he reports was 210/100, but his normal is 145/ 68. He took his usual medications for HTN at 0730, and he took an additional Aspirin at 1030 in the waiting room. He additionally c/o headache pressure behind his eyes, photophobia, sensitivity to sound, and achy abd pain. He denies chest pain or pressure, SOB, fever, chills, diaphoresis, urinary or BM changes, diarrhea, constipation, nausea, vomiting, and cough. Hx of HTN and MT. Upon physical exam, the patient exhibits no acute abnormalities. In the ED course, the patient was given Corveg. Bloodwork obtained. EKG reveals RBBB. The patient is not having any chest pain, and given that his Troponins are negative , I suspect that his symptoms are secondary to uncontrolled HTN. He did have improvement of blood pressure in the ED as it decreased. His dx is uncontrolled HTN and dizziness. We increased his Corveg to 6.25mg in the morning and 3.125mg at night. He will be discharged home with this prescription, education materials , and follow up with PCP in 2 days. Patient agrees with this plan and understands the need for return to the ED if necessary. - Diagnoses Provider Diagnoses: Uncontrolled hypertension, Dizziness Discharge - Sign-Out/Discharge Documenting (check all that apply): Patient Departure - Patient will be discharged home. - Discharge Plan Condition: Stable Disposition: HOME Prescriptions: Carvedilol TAB* [Coreg TAB*] 3.125 mg PO BID #42 tab Patient Education Materials: Chronic Hypertension (ED), Dizziness (ED) Referrals: Justin Conley MD [Primary Care Provider] - 2 Days Additional Instructions: Take medications as prescribed. Follow up with your primary care provider in 2 days. RETURN TO THE EMERGENCY DEPARTMENT FOR CHANGING OR WORSENING SYMPTOMS - Billing Disposition and Condition Condition: STABLE Disposition: Home - Attestation Statements Document Initiated by Scribe: Yes Documenting Scribe: Liz Mendoza Provider For Whom Gallitoibbethel is Documenting (Include Credential): Dr. Luke Bowers MD Scribe Attestation: Liz Henderson scribed for Dr. Luke Bowers MD on 05/04/18 at 1551. Scribe Documentation Reviewed: Yes Provider Attestation: The documentation as recorded by the scribe, Liz Menodza accurately reflects the service I personally performed and the decisions made by me, Dr. Luke Bowers MD Status of Scribe Document: Viewed
[2018-05-04 11:57] LABS: ABS Basophils 0.1 10^3/ul (0-0.2); ABS Eosinophils 0.2 10^3/ul (0-0.6); ABS Lymphocytes 0.9 10^3/ul (1.0-4.8); ABS Monocytes 0.5 10^3/ul (0-0.8); ABS Neutrophils 5.5 10^3/ul (1.5-7.7); ABS Nucleated RBC 0 10^3/ul; Eosinophil % 3.2 %; Hematocrit 42 % (42-52); Hemoglobin 14.3 g/dl (14.0-18.0); Lymphocyte % 12.9 %; Mean Corpuscular HGB Conc 34 g/dl (31-36); Mean Corpuscular Hemoglobin 31 pg (27-31); Mean Corpuscular Volume 91 fL (80-94); Mean Platelet Volume 7.6 fL (7.4-10.4); Nucleated Red Blood Cells % 0; Platelet Count 201 10^3/ul (150-450); Red Blood Count 4.61 10^6/ul (4.00-5.40); Red Cell Distribution Width 14 % (10.5-15); White Blood Count 7.3 10^3/ul (3.5-10.8)
[2018-05-04 12:14] LABS: Albumin 4.1 g/dL (3.2-5.2); Albumin/Globulin Ratio 1.3 (1-3); BUN/Creatinine Ratio 26.9 (8-20); Calcium 9.7 mg/dL (8.6-10.3); EGFR Non-African American 66.3 (>60); Globulin 3.1 g/dL (2-4); Potassium 4.5 mmol/L (3.5-5.0); Total Bilirubin 0.4 mg/dL (0.2-1.0); Total Protein 7.2 g/dL (6.4-8.9)
[2018-05-04 15:59] VITALS: BP 143/79
== END 2018-05-04 15:58 | disposition home or self-care (01) ==
LOC: ED 10:55
DX: I10 Essential (primary) hypertension (principal); R42 Dizziness and giddiness; R51 Headache; I25.10 Atherosclerotic heart disease of native coronary artery without angina pectoris; Z95.5 Presence of coronary angioplasty implant and graft; Z88.0 Allergy status to penicillin; Z87.891 Personal history of nicotine dependence
CPT/HCPCS: 36415; 80053; 83605; 84484; 85025; 93005; 99283; A9270-GY

== ENCOUNTER 2018-05-14 19:44 | Emergency (ER) | payer MEDICARE ==
[2018-05-14 19:52] VITALS: BP 183/96
== END 2018-05-14 20:42 | disposition left against medical advice (07) ==
LOC: ED 19:44
DX: I10 Essential (primary) hypertension (principal); Z53.21 Procedure and treatment not carried out due to patient leaving prior to being seen by health care provider

== ENCOUNTER 2019-02-28 07:38 | Emergency (ER) | payer MEDICARE ==
[2019-02-28 07:59] VITALS: BP 155/71
--- NOTE | 2019-02-28 08:59 | UC ---
Respiratory Complaint HPI - HPI Summary HPI Summary: 3 WEEKS OF SINUS CONGESTION, STUFFY NOSE, COUGH AND SORE THROAT. 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 NO FEVER, N/V. - History of Current Complaint Chief Complaint: UCGeneralIllness Stated Complaint: sinus congestion, and SORE THROAT Time Seen by Provider: 02/28/19 08:50 Hx Obtained From: Patient Onset/Duration: Gradual Onset, Lasting Weeks, Still Present Timing: Constant Severity Initially: Moderate Severity Currently: Moderate Pain Intensity: 0 Pain Scale Used: 0-10 Numeric Character: Cough: Nonproductive Aggravating Factors: Nothing Alleviating Factors: Nothing Associated Signs And Symptoms: Positive: URI, Nasal Congestion, Sinus Discomfort. Negative: Dyspnea, Fever, Wheezing - Allergies/Home Medications Allergies/Adverse Reactions: Allergies Allergy/AdvReac Type Severity Reaction Status Date / Time atorvastatin Allergy Unknown Verified 02/28/19 07:48 Reaction Details ezetimibe Allergy Unknown Verified 02/28/19 07:48 Reaction Details Penicillins Allergy Unknown Verified 02/28/19 07:48 Reaction Details simvastatin Allergy Unknown Verified 02/28/19 07:48 Reaction Details Home Medications: Home Medications Ibuprofen TAB* [Advil TAB*] 200 mg PO PRN 02/28/19 [History] PMH/Surg Hx/FS Hx/Imm Hx Cardiovascular History: Cardiac Disease - STENTS, Hypertension Cancer History: Prostate Cancer - Surgical History Surgical History: Yes Surgery Procedure, Year, and Place: two stents place, 2009 and 2010 - Family History Known Family History: Positive: Hypertension - Social History Alcohol Use: None Substance Use Type: None Smoking Status (MU): Former Smoker Review of Systems All Other Systems Reviewed And Are Negative: Yes Constitutional: Positive: Fatigue ENT: Positive: Sore Throat, Nasal Discharge, Sinus Congestion Respiratory: Positive: Cough Cardiovascular: Positive: Negative Gastrointestinal: Positive: Negative Physical Exam Triage Information Reviewed: Yes Appearance: Well-Appearing, No Pain Distress, Well-Nourished Vital Signs: Initial Vital Signs Temp 98.7 F 02/28/19 07:53 Pulse 70 02/28/19 07:53 Resp 18 02/28/19 07:53 BP 155/71 02/28/19 07:53 Pulse Ox 96 02/28/19 07:53 Vital Signs Reviewed: Yes Eyes: Positive: Conjunctiva Clear ENT: Positive: Hearing grossly normal, Pharynx normal, TMs normal Neck: Positive: Supple, Nontender, No Lymphadenopathy Respiratory Exam: Normal Cardiovascular Exam: Normal Abdomen Description: Positive: Soft Musculoskeletal: Positive: No Edema Neurological: Positive: Alert Psychological: Positive: Age Appropriate Behavior Skin: Negative: Rashes Respiratory Course/Dx - Differential Dx/Diagnosis Provider Diagnosis: Acute sinusitis Discharge ED - Sign-Out/Discharge Documenting (check all that apply): Patient Departure All imaging exams completed and their final reports reviewed: No Studies - Discharge Plan Condition: Stable Disposition: HOME Prescriptions: Doxycycline Monohydrate 1 cap PO BID #20 cap Patient Education Materials: Sinusitis (ED) Referrals: Justin Conley MD [Primary Care Provider] - If Needed Additional Instructions: YOUR SYMPTOMS MAY BE VIRALLY MEDIATED BUT GIVEN THE LENGTH OF TIME YOU HAVE BEEN ILL WE WILL COVER YOU WITH ANTIBIOTICS. IF YOU START THE MEDICINE BE SURE TO TAKE IT FOR THE FULL COURSE. REST, HYDRATE, OTC MEDS NEEDED. SEEK FOLLOW- UP WITH YOUR PCP IF YOU ARE NOT IMPROVING OVER THE NEXT 1-2 WEEKS. USE OTC AFRIN FOR NASAL CONGESTION. 2 SPRAYS IN EACH NOSTRIL TWICE DAILY NEEDED. DO NOT USE FOR MORE THAN 3-4 DAYS IN A ROW TO PREVENT DEVELOPING REBOUND CONGESTION. - Billing Disposition and Condition Condition: STABLE Disposition: Home
== END 2019-02-28 09:09 | disposition home or self-care (01) ==
LOC: UCEAST 07:38
DX: J01.90 Acute sinusitis, unspecified (principal); J02.9 Acute pharyngitis, unspecified; I10 Essential (primary) hypertension; Z88.8 Allergy status to other drugs, medicaments and biological substances; Z88.0 Allergy status to penicillin; Z87.891 Personal history of nicotine dependence; Z82.49 Family history of ischemic heart disease and other diseases of the circulatory system; Z95.5 Presence of coronary angioplasty implant and graft
CPT/HCPCS: 99212; G0463

== ENCOUNTER 2019-03-12 10:08 | Emergency (ER) | payer MEDICARE ==
[2019-03-12 10:30] VITALS: BP 157/75
--- NOTE | 2019-03-12 11:43 | UC ---
Neck Pain HPI - HPI Summary HPI Summary: 78 year old male with cardiac history, presents with neck pain after cold x 3 weeks. patient states cold resovled, however continues to have cough, dry. no fever, chills. noted 2-3 days ago left sided neck pain, no numbness, tingling , decreased strength. has h/o OA, was to get injections in the past to cervical area, did not complete. no headache, lightheadedness. - History of Current Complaint Chief Complaint: UCGeneralIllness Stated Complaint: NECK PAIN Time Seen by Provider: 03/12/19 10:56 Hx Obtained From: Patient Onset/Duration Of Injury/Symptoms: Days - 3 days Mechanism Of Injury: No Known Trauma Onset/Duration: Sudden Onset, Lasting Days Severity: Moderate Pain Intensity: 5 Pain Scale Used: 0-10 Numeric Location: Discrete At: - left neck Character: Sharp - with certain movements, Aching Associated Signs & Symptoms: Negative: Swelling, Redness, Fever, Nuchal Rigity, Weakness, Headache, Paresthesia - Allergies/Home Medications Allergies/Adverse Reactions: Allergies Allergy/AdvReac Type Severity Reaction Status Date / Time atorvastatin Allergy Unknown Verified 03/12/19 10:31 Reaction Details ezetimibe Allergy Unknown Verified 03/12/19 10:31 Reaction Details Penicillins Allergy Unknown Verified 03/12/19 10:31 Reaction Details simvastatin Allergy Unknown Verified 03/12/19 10:31 Reaction Details PMH/Surg Hx/FS Hx/Imm Hx Previously Healthy: Yes - Surgical History Surgical History: Yes Surgery Procedure, Year, and Place: two stents place, 2009 and 2010 - Family History Known Family History: Positive: Hypertension, Non-Contributory - Social History Occupation: Retired Alcohol Use: None Substance Use Type: None Smoking Status (MU): Former Smoker Review of Systems All Other Systems Reviewed And Are Negative: Yes Constitutional: Negative: Fever, Chills, Fatigue Skin: Negative: Rash, Bruising ENT: Negative: Dental Pain, Sore Throat, Ear Ache, Nasal Discharge, Sinus Congestion, Sinus Pain/Tenderness Respiratory: Positive: Cough. Negative: Shortness Of Breath Musculoskeletal: Positive: Arthralgia, Myalgia. Negative: Decreased ROM, Edema Neurological: Positive: Negative Is Patient Immunocompromised?: No Physical Exam Triage Information Reviewed: Yes Appearance: Well-Appearing, No Pain Distress, Well-Nourished Vital Signs: Initial Vital Signs Temp 98.2 F 03/12/19 10:26 Pulse 70 03/12/19 10:26 Resp 20 03/12/19 10:26 BP 157/75 03/12/19 10:26 Pulse Ox 96 03/12/19 10:26 Vital Signs Reviewed: Yes Eyes: Positive: Conjunctiva Clear Neck: Positive: Supple, No Lymphadenopathy, Tenderness @ - occiput, SCM, trap at cervical insertion. no TTP over cervical spine. full ROM with spasm with ear to shoulder L side, full extension. CN grossly intact.. Negative: Nuchal Rigidity, Enlarged Nodes @ Respiratory: Positive: Chest non-tender, Lungs clear, Normal breath sounds, No respiratory distress, No accessory muscle use. Negative: Crackles, Rhonchi, Stridor, Wheezing Cardiovascular: Positive: RRR, Pulses Normal, Murmur:Sys:Grade _?_/ - 2 Neurological Exam: Normal Neurological: Positive: Alert, Muscle Tone Normal. Negative: Fatigued, Lethargic Skin Exam: Normal Skin: Negative: Rashes Neck Pain Course/Dx - Course Course Of Treatment: torticollis: - Prednisone for 3 days: 30mg today, then 20mg tomorrow, and 20mg 11/20 - Tylenol as needed for pain - Increase rest- rest head to rest neck muscles. - Heating pads as needed - Go to ER if increased pain, headache, no resolution of symptoms - Check blood pressure twice daily, call if greater than 165. - Differential Dx/Diagnosis Provider Diagnosis: Torticollis, acute Discharge ED - Sign-Out/Discharge Documenting (check all that apply): Patient Departure All imaging exams completed and their final reports reviewed: Yes - Discharge Plan Condition: Good Disposition: HOME Prescriptions: predniSONE TAB* [Deltasone 10 MG TAB*] 10 mg PO .SEE TAP #7 tab Patient Education Materials: Spasmodic Torticollis (ED) Referrals: Justin Conley MD [Primary Care Provider] - Additional Instructions: - Prednisone for 3 days: 30mg today, then 20mg tomorrow, and 20mg 11/20 - Tylenol as needed for pain - Increase rest- rest head to rest neck muscles. - Heating pads as needed - Go to ER if increased pain, headache, no resolution of symptoms, numbness, tinling, decreased strength - Check blood pressure twice daily, call if greater than 165. - Billing Disposition and Condition Condition: GOOD Disposition: Home
== END 2019-03-12 12:10 | disposition home or self-care (01) ==
LOC: UCEAST 10:08
DX: M43.6 Torticollis (principal); Z87.891 Personal history of nicotine dependence; Z88.0 Allergy status to penicillin; Z88.8 Allergy status to other drugs, medicaments and biological substances
CPT/HCPCS: 72050; 99212; G0463

== ENCOUNTER 2019-12-16 03:34 | Observation (INO) ==
[2019-12-16] MEDS ORDERED: NS 0.9% 1000 ml BAG 1,000 ML IV ONE (04:10)
[2019-12-16 04:46] LABS: ABS Basophils 0.1 10^3/ul (0-0.2); ABS Eosinophils 0.3 10^3/ul (0-0.6); ABS Lymphocytes 1.5 10^3/ul (1.0-4.8); ABS Monocytes 0.6 10^3/ul (0-0.8); ABS Neutrophils 5.4 10^3/ul (1.5-7.7); Eosinophil % 4.4 %; Hematocrit 43 % (42-52); Hemoglobin 15.1 g/dL (14.0-18.0); Lymphocyte % 18.7 %; Mean Corpuscular HGB Conc 35 g/dL (31-36); Mean Corpuscular Hemoglobin 31 pg (27-31); Mean Corpuscular Volume 90 fL (80-94); Mean Platelet Volume 7.9 fL (7.4-10.4); Platelet Count 188 10^3/uL (150-450); Red Cell Distribution Width 14 % (10-15); White Blood Count 7.9 10^3/uL (3.5-10.8)
[2019-12-16 05:06] LABS: Troponin I 0.01 ng/mL (<0.03)
[2019-12-16] MEDS ORDERED: Ondansetron 4 mg VIAL 2 MG/ML 2 ml VIAL IV PRN (05:48)
[2019-12-16 05:51] LABS: Albumin 4.6 g/dL (3.2-5.2); Calcium 9.8 mg/dL (8.6-10.3); Potassium 4.4 mmol/L (3.5-5.0); Total Bilirubin 0.5 mg/dL (0.2-1.0)
[2019-12-16 05:57] LABS: Albumin/Globulin Ratio 1.7 (1-3); BUN/Creatinine Ratio 26.4 (8-20); EGFR Non-African American 53.7 (>60); Globulin 2.7 g/dL (2-4); Total Protein 7.3 g/dL (6.4-8.9)
[2019-12-16] MEDS ORDERED: NS 0.9% 1000 ml BAG 1,000 ML IV SCH (06:15)
[2019-12-16 07:30] LABS: HDL Cholesterol 37.1 mg/dL
[2019-12-16 07:46] LABS: Troponin I 0.03 ng/mL (<0.03)
[2019-12-16] MEDS: Aspirin EC 81 mg TAB.EC (enteric coated) PO SCH (08:15)
[2019-12-16] MEDS: Fluticasone NASAL SPRAY 50MCG 16 gm SPRAY BTL BOTH NARES SCH (08:16)
[2019-12-16] MEDS ORDERED: Enoxaparin 40 MG/0.4 ML SYR SUBCUT SCH (09:00)
[2019-12-16 10:05] LABS: Troponin I 0.06 ng/mL (<0.03)
[2019-12-16] MEDS: Al Hydrox/Mg Hydrox/Simet LIQ 30 ML UDC PO PRN (10:34)
[2019-12-16 12:57] LABS: Troponin I 0.07 ng/mL (<0.03)
[2019-12-16] MEDS ORDERED: Dextrose 50% Syringe 50 ml 25 GM/50 ML SYRINGE IV PUSH PRN (13:21)
[2019-12-16 16:34] LABS: Troponin I 0.11 ng/mL (<0.03)
[2019-12-16 20:01] LABS: Troponin I 0.18 ng/mL (<0.03)
[2019-12-16] MEDS ORDERED: Heparin DRIP 25,000 UNITS BAG 25,000 UNITS/500 ML BAG IV SCH (20:30)
[2019-12-16 21:10] LABS: ABS Basophils 0.1 10^3/ul (0-0.2); ABS Eosinophils 0.3 10^3/ul (0-0.6); ABS Lymphocytes 1.5 10^3/ul (1.0-4.8); ABS Monocytes 0.7 10^3/ul (0-0.8); ABS Neutrophils 6.2 10^3/ul (1.5-7.7); Eosinophil % 3.3 %; Hematocrit 39 % (42-52); Hemoglobin 13.6 g/dL (14.0-18.0); Lymphocyte % 17.5 %; Mean Corpuscular HGB Conc 35 g/dL (31-36); Mean Corpuscular Hemoglobin 31 pg (27-31); Mean Corpuscular Volume 90 fL (80-94); Mean Platelet Volume 7.4 fL (7.4-10.4); Platelet Count 191 10^3/uL (150-450); Red Blood Count 4.38 10^6 /uL (4.18-5.48); Red Cell Distribution Width 14 % (10-15); White Blood Count 8.7 10^3/uL (3.5-10.8)
[2019-12-16 21:41] LABS: EGFR African American 61.2 (>60); EGFR Non-African American 50.5 (>60)
[2019-12-16] MEDS: Heparin 5000 UNITS/ML 1 mL VIAL IV SCH (22:16)
[2019-12-16 23:08] LABS: Troponin I 0.18 ng/mL (<0.03)
[2019-12-17] MEDS: Al Hydrox/Mg Hydrox/Simet LIQ 30 ML UDC PO PRN (04:47)
[2019-12-17 04:51] LABS: ABS Basophils 0.1 10^3/ul (0-0.2); ABS Eosinophils 0.3 10^3/ul (0-0.6); ABS Lymphocytes 1.4 10^3/ul (1.0-4.8); ABS Monocytes 0.6 10^3/ul (0-0.8); ABS Neutrophils 6.7 10^3/ul (1.5-7.7); Eosinophil % 3.6 %; Hematocrit 39 % (42-52); Hemoglobin 13.8 g/dL (14.0-18.0); Lymphocyte % 15.2 %; Mean Corpuscular HGB Conc 35 g/dL (31-36); Mean Corpuscular Hemoglobin 31 pg (27-31); Mean Corpuscular Volume 90 fL (80-94); Mean Platelet Volume 7.6 fL (7.4-10.4); Platelet Count 195 10^3/uL (150-450); Red Blood Count 4.39 10^6 /uL (4.18-5.48); Red Cell Distribution Width 14 % (10-15); White Blood Count 9.2 10^3/uL (3.5-10.8)
[2019-12-17 05:08] LABS: BUN/Creatinine Ratio 20.8 (8-20); Calcium 9.3 mg/dL (8.6-10.3); EGFR African American 70.7 (>60); EGFR Non-African American 58.4 (>60); Potassium 4.2 mmol/L (3.5-5.0)
[2019-12-17 05:25] LABS: INR 1.03 (0.82-1.09)
[2019-12-17] MEDS ORDERED: NS 0.9% 1000 ml BAG 1,000 ML IV SCH (06:00)
[2019-12-17] MEDS: Heparin 5000 UNITS/ML 1 mL VIAL IV SCH (06:43)
[2019-12-17] MEDS: Aspirin EC 81 mg TAB.EC (enteric coated) PO SCH (09:36)
[2019-12-17] MEDS: Fluticasone NASAL SPRAY 50MCG 16 gm SPRAY BTL BOTH NARES SCH (09:37)
[2019-12-17] MEDS ORDERED: VERAPAMIL 2.5 MG/ML 2 ML VIAL ** 5 mg/2 ml ONE (09:57)
[2019-12-17] MEDS ORDERED: Heparin 1,000 UNIT/ML 10 ml (10,000 UNITS) CATHLAB/DIALYSIS ONE (09:57)
[2019-12-17] MEDS ORDERED: Midazolam 5 mg/5 ml VIAL 1 mg/ml 5 ml VIAL (5 mg) ONE (09:57)
[2019-12-17] MEDS ORDERED: fentaNYL 100 mcg/2 ml 50 MCG/ML VIAL ONE (09:57)
[2019-12-17] MEDS ORDERED: nitroGLYCERIN DRIP 25,000 MCG/250 ML BTL ONE (09:58)
[2019-12-17] MEDS ORDERED: Heparin 2 UNITS/ML 1000 mls 2,000 ML IV ONE (09:58)
[2019-12-17] MEDS ORDERED: Lidocaine 1% VIAL 10 MG/ML VIAL ONE (09:58)
[2019-12-17] MEDS ORDERED: Iodixanol 320 (CONTRAST) 100 ML SDV ONE ×2 (09:59→10:17)
[2019-12-17 16:30] VITALS: BP 139/56
== END 2019-12-17 16:15 | disposition short-term general hospital (02) ==
LOC: EDHOLD 03:34 → ED 03:34 → MEDTELE 07:01
PROVIDERS: ADMIT Pediatrics; ATTEND Internal Medicine

== ENCOUNTER 2020-07-10 06:54 | Observation (INO) ==
[2020-07-10 08:16] LABS: Activated Partial Thrombo Time 29.9 seconds (26.0-38.0); INR 1.16 (0.82-1.09)
[2020-07-10 08:20] LABS: ABS Eosinophils 0.1 10^3/ul (0-0.6); ABS Lymphocytes 0.6 10^3/ul (1.0-4.8); ABS Monocytes 0.8 10^3/ul (0-0.8); ABS Neutrophils 8.7 10^3/ul (1.5-7.7); Eosinophil % 0.6 %; Hematocrit 40 % (42-52); Hemoglobin 13.7 g/dL (14.0-18.0); Lymphocyte % 6.2 %; Mean Corpuscular HGB Conc 34 g/dL (31-36); Mean Corpuscular Hemoglobin 31 pg (27-31); Mean Corpuscular Volume 90 fL (80-94); Mean Platelet Volume 7.5 fL (7.4-10.4); Platelet Count 192 10^3/uL (150-450); Red Blood Count 4.48 10^6 /uL (4.18-5.48); Red Cell Distribution Width 15 % (10-15); White Blood Count 10.2 10^3/uL (3.5-10.8)
[2020-07-10 08:24] LABS: ALT 32 U/L (7-52); AST 17 U/L (13-39); Albumin 4.1 g/dL (3.2-5.2); Albumin/Globulin Ratio 1.5 (1-3); Alkaline Phosphatase 77 U/L (34-104); Anion Gap 12 mmol/L (2-11); BUN/Creatinine Ratio 18.1 (8-20); Blood Urea Nitrogen 23 mg/dL (6-24); CO2 Carbon Dioxide 21 mmol/L (22-32); Calcium 9.2 mg/dL (8.6-10.3); Chloride 103 mmol/L (101-111); Creatine Kinase 42 U/L (10-223); EGFR African American 66.2 (>60); EGFR Non-African American 54.7 (>60); Globulin 2.7 g/dL (2-4); Glucose 194 mg/dL (70-100); Magnesium 1.7 mg/dL (1.9-2.7); Potassium 4.1 mmol/L (3.5-5.0); Sodium 136 mmol/L (135-145); Total Protein 6.8 g/dL (6.4-8.9)
[2020-07-10 08:26] LABS: CKMB ng/mL 1.8 ng/mL (0.6-6.3)
[2020-07-10 08:29] LABS: Troponin I 0.04 ng/mL (<0.03)
[2020-07-10 08:53] LABS: TSH Ultra Thyroid Stim Horm 2.04 mcIU/mL (0.34-5.60)
[2020-07-10 09:09] LABS: Urine Appearance Clear; Urine Bilirubin Negative (Negative); Urine Blood Negative (Negative); Urine Color Yellow; Urine Glucose 2+(150 mg/dL) (Negative); Urine Ketones Negative (Negative); Urine Nitrite Negative (Negative); Urine Protein Negative (Negative); Urine Specific Gravity 1.017 (1.010-1.030); Urine Urobilinogen Negative (Negative)
[2020-07-10] MEDS ORDERED: NS 0.9% 1000 ml BAG 1,000 ML IV ONE (10:14)
[2020-07-10 12:25] LABS: Troponin I 0.06 ng/mL (<0.03)
[2020-07-10] MEDS ORDERED: Ondansetron 4 mg VIAL 2 MG/ML 2 ml VIAL IV PRN (13:01)
[2020-07-10] MEDS ORDERED: Magnesium Sulfate 2 gm BAG 2 GM/50 ML BAG IVPB ONE (13:11)
[2020-07-10] MEDS ORDERED: Heparin DRIP 25,000 UNITS BAG 25,000 UNITS/500 ML BAG IV SCH (13:15)
[2020-07-10] MEDS ORDERED: Metoprolol Tartrate 5 mg VIAL 5 ml VIAL (1 mg/ml) IV ONE (13:20)
[2020-07-10] MEDS ORDERED: Heparin 5000 UNITS/ML 1 mL VIAL IV SCH (14:00)
[2020-07-10] MEDS ORDERED: Dextrose 50% Syringe 50 ml 25 GM/50 ML SYRINGE IV PUSH PRN (14:53)
[2020-07-10 17:32] LABS: ABS Eosinophils 0.1 10^3/ul (0-0.6); ABS Lymphocytes 0.9 10^3/ul (1.0-4.8); ABS Monocytes 0.6 10^3/ul (0-0.8); ABS Neutrophils 6.8 10^3/ul (1.5-7.7); Eosinophil % 0.9 %; Hematocrit 43 % (42-52); Hemoglobin 14.2 g/dL (14.0-18.0); Lymphocyte % 10.8 %; Mean Corpuscular HGB Conc 34 g/dL (31-36); Mean Corpuscular Hemoglobin 30 pg (27-31); Mean Corpuscular Volume 91 fL (80-94); Mean Platelet Volume 7.3 fL (7.4-10.4); Platelet Count 196 10^3/uL (150-450); Red Blood Count 4.68 10^6 /uL (4.18-5.48); Red Cell Distribution Width 16 % (10-15); White Blood Count 8.5 10^3/uL (3.5-10.8)
[2020-07-10 17:55] LABS: Blood Urea Nitrogen 17 mg/dL (6-24); Cholesterol 140 mg/dL; EGFR African American 73.5 (>60); EGFR Non-African American 60.7 (>60); HDL Cholesterol 40.2 mg/dL; LDL Cholesterol 71 mg/dL; Triglycerides 143 mg/dL
[2020-07-10 18:15] LABS: Troponin I 0.06 ng/mL (<0.03)
[2020-07-10] MEDS: Heparin 5000 UNITS/ML 1 mL VIAL IV SCH (20:11)
[2020-07-10 21:27] LABS: Troponin I 0.05 ng/mL (<0.03)
[2020-07-11] MEDS: Heparin 5000 UNITS/ML 1 mL VIAL IV SCH (02:59)
[2020-07-11 05:39] LABS: ABS Eosinophils 0.2 10^3/ul (0-0.6); ABS Monocytes 0.8 10^3/ul (0-0.8); ABS Neutrophils 7.2 10^3/ul (1.5-7.7); Eosinophil % 1.7 %; Hematocrit 38 % (42-52); Hemoglobin 13.2 g/dL (14.0-18.0); Lymphocyte % 10.9 %; Mean Corpuscular HGB Conc 34 g/dL (31-36); Mean Corpuscular Hemoglobin 31 pg (27-31); Mean Corpuscular Volume 90 fL (80-94); Mean Platelet Volume 7.3 fL (7.4-10.4); Platelet Count 197 10^3/uL (150-450); Red Blood Count 4.29 10^6 /uL (4.18-5.48); Red Cell Distribution Width 15 % (10-15); White Blood Count 9.2 10^3/uL (3.5-10.8)
[2020-07-11 05:58] LABS: BUN/Creatinine Ratio 13.4 (8-20); Calcium 8.9 mg/dL (8.6-10.3); EGFR African American 76.5 (>60); EGFR Non-African American 63.2 (>60); Magnesium 2.1 mg/dL (1.9-2.7)
[2020-07-11] MEDS ORDERED: CMC:Rosuvastatin 5 mg TAB (NF) PO SCH (09:00)
[2020-07-11] MEDS ORDERED: Aspirin EC 81 mg TAB.EC (enteric coated) PO SCH (09:00)
[2020-07-11] MEDS ORDERED: Regadenoson 0.4 MG/5 ML SYRINGE ONE (12:29)
[2020-07-11 15:56] VITALS: BP 141/61
== END 2020-07-11 17:10 | disposition home or self-care (01) ==
LOC: MEDTELE 06:54 → ED 06:54 → MEDTELE 18:37
PROVIDERS: ADMIT Hospitalist; ATTEND Pediatrics